=== PATIENT | female | born 1940 | race Caucasian/White ===

== ENCOUNTER 2024-01-02 12:03 | Inpatient (IN) | payer MEDICARE, OTHER, SELFPAY ==
[2024-01-02] VITALS (11 sets, daily range): BP systolic 98–156; BP diastolic 49–90; BMI 21.5
--- NOTE | 2024-01-02 08:45 | ED.GENMED ---
History of Present Illness
General
Chief Complaint: Abdominal Symptoms
Source: patient
Exam Limitations: none
Time Seen by Provider: 01/02/24 08:25
History of Present Illness
History of Present Illness:
83-year-old female otherwise quite healthy presents emergency room with a week and a half worth of fatigue and progressive weakness. Starting 2 to 3 days ago she had loose stools and yesterday she had dark-colored stools. She is coughing
occasionally has increased work of breathing. This was preceded by 5 days left sided pain. She was taking Aleve twice a day for several weeks secondary to her back and left sided pain. No prior abdominal surgical history. No urinary symptoms.
She lives by herself and still works part-time. No other complaints at this time
Phy Exam
Physical Exam
Physical Exam:
General: Well-appearing female no acute respiratory distress
HEENT: Normocephalic atraumatic
Heart: Regular rate and rhythm no murmurs
Lungs: Clear no wheeze
Abdomen slightly distended but soft mildly tender to the left mid abdomen no guarding or rebound normal bowel sounds no costovertebral angle tenderness
Extremities: No cyanosis or edema
Course
Orders/Labs/Results
Orders:
Orders
01/02/24 08:41
CT Abd/pel Without Iv Or Oral Urgent
Reason For Exam: left sided abdominal pain
STOOL [C difficile Antigen & Toxins] Urgent
JANETH Source: Feces/Stool
Specimen Description:
Stool Culture Urgent
JANETH Source: Feces/Stool
Specimen Description:
Stool for Occult Blood Routine
CR Chest - 2 Views Urgent
Comment:
Reason For Exam: cough
01/02/24 08:46
0.9% Sodium Chloride 1000 ml [Nss] 1,000 ml IV BOLUS
01/02/24 08:51
Complete Blood Count/With Diff Urgent
Comprehensive Metabolic Panel Urgent
01/02/24 09:08
Urinalysis Reflex To Culture Urgent
Date Specimen was Collected: 01/02/24
Time Specimen was Collected: 09:07
Urine Microscopic Reflex Cult Urgent
Urine Culture Urgent
JANETH Source: U
Specimen Description:
Date Specimen was Collected: 01/02/24
Time Specimen was Collected: 09:07
01/02/24 09:17
Pantoprazole [Protonix IV] 80 mg IV NOW STA
01/02/24 09:30
Pantoprazole 80 mg/100 ml Nss [Protonix] 80 mg in 100 ml IV Q10H
01/02/24 10:16
Lactic Acid Q4H
Comment: CANCEL 2nd LACTIC ACID IF 1st LACTIC ACID IS LESS THAN 2
Blood Culture Urgent
JANETH Source: Blood/Venous
Specimen Description:
01/02/24 10:36
Blood Culture Urgent
JANETH Source: Blood/Venous
Specimen Description:
CefTRIAXone [Rocephin] 1,000 mg IV NOW STA
01/02/24 13:30
Lactic Acid Q4H
Comment: CANCEL 2nd LACTIC ACID IF 1st LACTIC ACID IS LESS THAN 2
Abnormal Lab Results
01/02/24 01/02/24
08:51 09:08
WBC 28.3 H 10^3/uL
(4.8-10.8)
RBC 3.44 L 10^6/uL
(4.20-5.40)
Hgb 10.5 L g/dL
(12.0-16.0)
Hct 30.2 L %
(37.0-47.0)
RDW 14.8 H %
(11.5-14.5)
Abs Immat Gran (auto) 1.0 H 10^3/uL
(0-0.05)
Absolute Neuts (auto) 24.8 H 10^3/uL
(1.4-6.5)
Absolute Lymphs (auto) 1.1 L 10^3/uL
(1.2-3.4)
Absolute Monos (auto) 1.2 H 10^3/uL
(0.1-0.6)
Immature Gran % 3.4 H %
(0-0.5)
Neutrophils % 87.6 H %
(42.2-75.2)
Lymphocytes % 4.0 L %
(20.5-51.1)
Chloride 108 H mmol/L
(98-107)
Carbon Dioxide 19 L mmol/L
(22-30)
BUN 106 H* mg/dl
(7-17)
Creatinine 1.7 H mg/dL
(0.6-1.0)
Glucose 140 H mg/dl
(70-99)
Alkaline Phosphatase 386 H U/L
(38-126)
Total Protein 5.7 L g/dl
(6.3-8.2)
Albumin 2.7 L g/dl
(3.5-5.0)
Ur Occult Blood Reflex 3+ A
(Negative)
Urine Nitrite (Reflex) Positive A
(Negative)
Leukocyte Esterase Rfl 2+ A
(Negative)
Urine RBC 26-30 A /HPF
(0-2)
Urine WBC (Reflex) 50-60 A /HPF
(0-5)
Urine Bacteria (Reflex) Many A
(Negative)
01/02/24 08:51
01/02/24 08:51
Vital Signs
Initial and Last Documented VS:
Initial Vital Signs
Temp Pulse Resp BP Pulse Ox
98.2 F 67 16 156/90 95
01/02/24 07:57 01/02/24 07:57 01/02/24 07:57 01/02/24 07:57 01/02/24 07:57
Last Documented Vital Signs
Temp Pulse Resp BP Pulse Ox
98.2 F 123 23 146/70 95
01/02/24 07:57 01/02/24 09:13 01/02/24 09:13 01/02/24 09:15 01/02/24 07:57
MDM/Problems Addressed
Differential Diagnosis Includes:
Fatigue diarrhea dark stool. Question viral illness, electrolyte abnormality, anemia. She is coughing occasionally with increased work of breathing. Will check chest x-ray for pneumonia. Patient did take 2 COVID test at home which were negative.
If patient provide stool sample will check stool culture and C. difficile
Patient is slightly distended and tender to the abdomen. Will order CT of the abdomen
*Critical Care Note
Total Time (30-74mins, 75-104mins- exclusive of procedures): Not Applicable
Update Note
Update Note:
Patient is tachycardic. Hemoglobin 10.5. White count 28,000. Lactic acid and blood cultures ordered. Rectal exam was performed with female personal lines sales executive in the room. The stool was black in color and heme positive. Patient was using Aleve
frequently recently. Protonix ordered
Chest x-ray shows emphysematous changes but no acute finding otherwise. CT the abdomen shows dilation of the bilateral renal collecting systems. Consider urinary tract infection as a source. CT abdomen also shows fluid in the stomach potentially
blood products. Rocephin ordered for UTI. Lactic acid and blood cultures sent. Will admit to hospital
ED Attending Note
-
Portions of this chart may have been created with voice recognition software.� Occasional wrong word or��sound alike� substitutions may have occurred due to the inherent limitations of voice recognition software.
Discharge Plan
Departure
Patient Disposition: Admit
Date of Disposition: 01/02/24
Time of Disposition: 10:40
Admit to: Telemetry
Presentation/result/management discussed w/ accepting MD/DO: Hospitalist
Discharge Problem:
Acute GI bleeding, Acute UTI
Prescriptions:
No Action
naproxen sodium [Aleve] 220 mg Tablet
220 mg PO BIDPRN PRN (Reason: back pains)
ibandronate [Boniva] 150 mg Tablet
150 mg PO QMONTH
Referrals:
NONE,* [Family Provider] -
Interventions
Interventions:
*Risk Screen - Suicide Last Done: 01/02/24 07:57
*Neglect/Abuse Screening Last Done: 01/02/24 07:57
Discharge Date and Time
Print Language: KYRGYZ
[2024-01-02 09:03] LABS: Hematocrit 30.2 % (37.0-47.0); Hemoglobin 10.5 g/dL (12.0-16.0); Mean Corp Hgb Conc. 34.8 g/dL (33.0-37.0); Mean Corpuscular Hgb 30.5 pg (27.0-31.0); Mean Corpuscular Volume 87.8 fL (81.0-99.0); Mean Platelet Volume 10.1 fL (7.4-10.4); Platelet Count 192 10^3/uL (130-400); Red Blood Cell Count 3.44 10^6/uL (4.20-5.40); Red Cell Dist. Width 14.8 % (11.5-14.5); White Blood Cell Count 28.3 10^3/uL (4.8-10.8)
[2024-01-02] MEDS: NSS 1000 IV (09:05)
[2024-01-02 09:25] LABS: ALT (SGPT) 24 U/L (0-35); AST (SGOT) 26 U/L (14-36); Albumin 2.7 g/dl (3.5-5.0); Alkaline Phosphatase 386 U/L (38-126); Blood Urea Nitrogen 106 mg/dl (7-17); Calcium 9.1 mg/dl (8.4-10.2); Carbon Dioxide 19 mmol/L (22-30); Chloride 108 mmol/L (98-107); Estimated Creatinine Clearance 19 ml/min; Glucose 140 mg/dl (70-99); Potassium 4.6 mmol/L (3.5-5.1); Sodium 140 mmol/L (135-145); Total Bilirubin 1.2 mg/dl (0.2-1.3); Total Protein 5.7 g/dl (6.3-8.2); eGFR 29.76
[2024-01-02 09:25] LABS: Urine Albumin Trace (Neg - Trace); Urine Bilirubin Negative (Negative); Urine Character Slightly Cloudy (Clear); Urine Color Yellow; Urine Glucose Negative (Negative); Urine Ketone Negative (Negative); Urine Leukocyte 2+ (Negative); Urine Nitrite Positive (Negative); Urine Occult Blood 3+ (Negative); Urine Urobilinogen Negative (Neg - 1+)
[2024-01-02 09:44] LABS: Urine Squamous Cell 16-20 /LPF (Few)
[2024-01-02 09:45] LABS: Urine Bacteria Many (Negative); Urine Red Blood Cell 26-30 /HPF (0-2); Urine White Cell 50-60 /HPF (0-5)
[2024-01-02 09:47] LABS: % Basophils 0.5 % (0-2); % Eosinophils 0.1 % (0-6); % Immature Granulocytes 3.4 % (0-0.5); % Monocytes 4.4 % (1.7-9.3); % Neutrophils 87.6 % (42.2-75.2); Absolute Basophils 0.2 10^3/uL (0-0.2); Absolute Lymphocytes 1.1 10^3/uL (1.2-3.4); Absolute Monocytes 1.2 10^3/uL (0.1-0.6); Absolute Neutrophils 24.8 10^3/uL (1.4-6.5); Nucleated Red Blood Cells % 0 %
[2024-01-02] MEDS: PROTONIX 100 IV ×2 (10:26→19:25)
[2024-01-02] MEDS: PROTONIX IV 80 MG IV (10:26)
[2024-01-02 10:41] LABS: Lactic Acid 1.6 mmol/L (0.7-2.0)
--- NOTE | 2024-01-02 11:39 | HPS.HSE ---
Family Physician
-
Family Physician: * NONE
Chief Complaint
-
Fatigue, shortness of breath, black stools
History of Present Illness
83-year-old female here complaining of melena that started 2 days ago, fatigue and shortness of breath that started 2 weeks ago.
Has been taking Aleve twice daily for 7 weeks due to left-sided flank pain. She states she hurt her back 7 weeks ago trying to lift her bed to put casters underneath.
Denies history of GI bleed. Denies fevers or chills. Denies dysuria or frequency although at nighttime she does get up 3 times to urinate lately due to increased oral fluid intake prior to bed.
Has a mildly productive cough lately. Lives alone. Works part-time. Does not have a family physician.
Medical History
Past Medical History
Past Medical History: Reports Other
Additional Past Medical History:
Osteoporosis
Past Surgical History: Reports None
Social History
Tobacco: Former Smoker
Alcohol: Occasional
Drug: None
Personal: Single
Living: Alone
Employment: Employed
Family History
Family History: Not pertinent
Allergies / Home Medications
Allergies reflects when Allergies were last updated in [employer].
Home Medications with original date entered in [employer]
Allergy/Medication List:
Allergies
Allergy/AdvReac Type Severity Reaction Status Date / Time
No Known Allergies Allergy Verified 01/02/24 08:01
Home Medications
ibandronate 150 mg tablet 150 mg PO QMONTH 01/02/24
naproxen sodium 220 mg tablet (Aleve) 220 mg PO BIDPRN PRN back pains 01/02/24
Review of Systems
-
History Source: Patient
A 12 point ROS was completed and negative except as noted: Yes
Physical Exam
Vital Signs
Vital Signs
Temp Pulse Resp BP Pulse Ox
98.2 F 118 25 146/70 97
01/02/24 07:57 01/02/24 10:34 01/02/24 10:34 01/02/24 09:15 01/02/24 10:34
Physical Exam
General: Well Developed, Well Nourished, No Apparent Distress and Comfortable
HEENT: NormoCephalic, Anicteric and Moist mucous membranes
Respiratory: Clear
Cardiac: S1/S2 and Regular Rhythm
GI: Soft, Non Tender and Distended
Genito-urinary: Deferred by me
Musculoskeletal: No Clubbing, No Cyanosis and No Edema
Skin: Warm and Dry
Neuro: AO x 3
Hematologic/Lymphatic: No Lymphadenopathy
Psych: Calm
Laboratory Results
-
01/02/24 08:51
01/02/24 08:51
Laboratory Results
Lactic Acid 1.6 mmol/L (0.7-2.0) 01/02/24 10:16
Total Bilirubin 1.2 mg/dl (0.2-1.3) 01/02/24 08:51
AST 26 U/L (14-36) 01/02/24 08:51
ALT 24 U/L (0-35) 01/02/24 08:51
Alkaline Phosphatase 386 U/L (38-126) H 01/02/24 08:51
Impression/Plan
-
Sepsis -differential diagnosis includes urinary source versus other. Does not have classic UTI symptoms. Urinalysis does show pyuria. Urine culture pending. Continue empiric ceftriaxone. CT scan does show moderate right and mild left
hydronephrosis, multiple nonobstructing right intrarenal calculi. No CT evidence for ureteral stones. Hemodynamically stable.
Subacute GI bleed -presentation with melena for 48 hours. Monitor hemoglobin. Consent for transfusion obtained in the emergency room. Consult GI. Continue Protonix drip. Denies history of GI bleed. Suspect NSAID induced GI bleed, peptic ulcer
disease. CT scan notes possible gastric intraluminal hemorrhage. Has never had EGD or colonoscopy.
CT also suggestive of possible ileus less likely obstruction given moderate fluid distention of small bowel loops in the pelvis. She has no complaints of nausea or vomiting. She does have abdominal distention on exam but not significantly tender.
Acute blood loss anemia -hemoglobin 10.5. MCV normal. Check anemia labs. Etiology of blood loss anemia likely due to GI bleed as above.
Normal anion gap metabolic acidosis -RTA versus GI bicarbonate losses. Monitor for now.
Renal insufficiency -acute versus chronic. High BUN to creatinine ratio suggestive of GI bleed. NSAID induced renal insufficiency also playing a role. Denies history of kidney disease but does not have a family physician. Baseline creatinine
unknown. Stop NSAIDs and recheck labs in the morning. IV fluid support.
Abdominal aortic aneurysm -incidental finding on CT, 3.1 cm. Findings reported to patient and family, recommend outpatient follow-up with PCP.
Emphysema -suspect related to years of smoking. Findings noted on CT and chest x-ray. Discussed with patient. She quit smoking 3 to 4 years ago.
Rectal prolapse -severe and noted on CT. Patient has no symptoms.
Colonic diverticulosis -noted on CT.
Osteoporosis -on Boniva. She does have an L4 vertebral body fracture on CT. Relatively asymptomatic. Perhaps her back pain 7 weeks ago could be explained by this.
DNR -confirmed with patient.
--- NOTE | 2024-01-02 11:42 | CON.GI ---
Addendum entered and electronically signed by Heike Love MD 01/02/24 13:55:
I saw and examined the patient.
The FEED MANAGER or PA's note was reviewed and I agree with the note.
Comment: 83-year-old female with history of osteoporosis, previous smoker quit 3 years ago presenting with complaints of black stool in the last couple of days. Also reports intermittent abdominal cramping without any nausea or vomiting. No
previous GI history and no symptoms prior to this. Never had upper endoscopy or colonoscopy. No history of GI bleeding. Has been taking Aleve 2 tablets daily for the past 7 weeks for back pain. 6 or 7 pound weight loss. Recently she does report
abdominal cramping, bloating, some shortness of breath. Labs show leukocytosis with white count of 28.3, left shift noted, hemoglobin of 10.5, BUN of 106 with creatinine of 1.7. Albumin low at 2.7.
CT of the abdomen pelvis without contrast showing acute vertebral body endplate fracture at L4, severe descending and sigmoid diverticulosis, moderate fluid distention of the small bowel loops. Moderate amount of poorly circumscribed high
attenuation material in the stomach. Also noted is significant emphysematous changes in both lungs.
On exam, abdomen is mildly distended, no guarding or rigidity but mild tenderness noted.
Rectal exam showing black stool.
Slightly tachycardic but otherwise hemodynamically stable.
-Upper GI bleeding likely related to NSAID use
Agree with Protonix drip.
Monitor H&H and transfuse as needed.
Given gastric small bowel loop distention, distention, will need to give IV erythromycin prior to endoscopy to prevent aspiration.
Given significant leukocytosis, await blood cultures and infection workup.
Once white count comes down, will plan for upper endoscopy. Possibly tomorrow.
If hemodynamically unstable , will do EGD sooner.
r
Original Note:
Consultation
-
Date/Time Consultation Requested: 01/02/24 1130
Date/Time Consultation Performed: 01/02/24 1145
Requesting Provider: Arvind Ordoñez DO
Performing Provider: AMANDEEP Haney, Heike Love MD
Reason for Consultation: GI bleed
Medical History
Chief Complaint / HPI
Chief Complaint: weakness
History of Present Illness:
Pt is an 83yo with hx osteoporosis on Boniva, PE years ago with control use, likely COPD/emphysema with hx tobacco abuse with onset of weakness and fatigue. In ER noted with hbg 10.5, with rise in BUN to 106 with creat 1.7 and WBC 28, 300
with reports of dark stools and weakness for several week. 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 She began about 7 weeks ago with increased acute on chronic back pain after moving a bed. She
increased Aleve use to BID. She dose have some chronic GERD with Pepcid occasional use but also notes in that time period some increased dizziness, shortness of breath, bloating and decreased appetite.
Ct on admission also noted multiple finding including renal collecting system distention, high attenuation in stomach- intraluminal hemorrhage vs other, fluid distention of SB loops, rectal prolapse, AAA 3.1 cm, L4 vert collapse, vert body
fracture, and DDD. She otherwise admits to occasional GERD and nausea but denies dysphagia, odynophagia, abdominal pain, or constipation. No hx EGD or colonoscopy in past.
Past Medical History
Past Medical History: GERD and Other (osteoporosis, tobacco abuse-- likely COPD/emphysema per imaging, chronic back pain, PE with control pill use years ago)
Social History
Tobacco: Former Smoker
Alcohol: None
Drug: None
Personal:
Living: Alone
Employment: Employed
Family History
Family History: Other (no family hx GI issues or colon CA)
Allergies / Home Medications
Allergy/AdvReac Type Severity Reaction Status Date / Time
No Known Allergies Allergy Verified 01/02/24 08:01
�Medication �Instructions �Recorded
ibandronate 150 mg tablet 150 mg PO QMONTH 01/02/24
naproxen sodium 220 mg tablet 220 mg PO BIDPRN PRN back pains 01/02/24
(Aleve)
Review of Systems
-
History Source: Patient and Family
Constitutional: Reports Weight Loss and Fatigue
EENT: Reports No Symptoms
Respiratory: Reports Trouble Breathing
Cardiac: Reports No Symptoms
Abdomen/GI: Reports Nausea and Other (dark stools and bloating)
: Reports No Symptoms
Musculoskeletal: Reports Other (acute on chronic back pain)
Skin: Reports No Symptoms
Neurological: Reports Weakness
Endocrine: Reports No Symptoms
Hematologic/Lymphatic: Reports Bleeding
Vital Signs
Temp Pulse Resp BP Pulse Ox
98.2 F 118 25 146/70 97
01/02/24 07:57 01/02/24 10:34 01/02/24 10:34 01/02/24 09:15 01/02/24 10:34
Physical Exam
Exam
General: Well Developed, Well Nourished and Other (some mild shortness of breath at rest )
HEENT: Normocephalic and Anicteric
Respiratory: Other (decreased )
Cardiac: Other (tachy)
GI: Soft and Distended (tympanic )
Musculoskeletal: No Clubbing and No Cyanosis
Skin: Warm and Dry
Neuro: Awake, Alert and AO x 3
Psych: Calm
Results
WBC 28.3 10^3/uL (4.8-10.8) H 01/02/24 08:51
Hgb 10.5 g/dL (12.0-16.0) L 01/02/24 08:51
Hct 30.2 % (37.0-47.0) L 01/02/24 08:51
MCV 87.8 fL (81.0-99.0) 01/02/24 08:51
Plt Count 192 10^3/uL (130-400) 01/02/24 08:51
Absolute Neuts (auto) 24.8 10^3/uL (1.4-6.5) H 01/02/24 08:51
Sodium 140 mmol/L (135-145) 01/02/24 08:51
Potassium 4.6 mmol/L (3.5-5.1) 01/02/24 08:51
Chloride 108 mmol/L (98-107) H 01/02/24 08:51
Carbon Dioxide 19 mmol/L (22-30) L 01/02/24 08:51
BUN 106 mg/dl (7-17) H* 01/02/24 08:51
Creatinine 1.7 mg/dL (0.6-1.0) H 01/02/24 08:51
Calcium 9.1 mg/dl (8.4-10.2) 01/02/24 08:51
Total Bilirubin 1.2 mg/dl (0.2-1.3) 01/02/24 08:51
AST 26 U/L (14-36) 01/02/24 08:51
ALT 24 U/L (0-35) 01/02/24 08:51
Alkaline Phosphatase 386 U/L (38-126) H 01/02/24 08:51
Diagnostic Image Results:
01/02/24 CT Abdomen and Pelvis without IV Contrast
1. Moderate distention of the right intrarenal collecting system and mild distention of the left intrarenal collecting system. Multiple nonobstructing right intrarenal calculi. No CT evidence for ureteral calculus. Diagnostic possibilities are (1)
ureteral obstructions or (2) bilateral ascending urinary tract infection.
2. Moderate amount of poorly circumscribed high attenuation material in the stomach which could be secondary to intraluminal hemorrhage from a gastric bleed.
3. Small hiatal hernia.
4. Moderate fluid distention of small bowel loops in the pelvis.
5. Severe descending and sigmoid colon diverticulosis.
6. Severe rectal prolapse.
7. Severe calcific atherosclerotic plaque in the abdominal aorta and iliac arteries.
8. Fusiform abdominal aortic aneurysm (3.1 cm diameter).
9. Acute vertebral body endplate fractures of L4 without vertebral body collapse.
10. VERY SEVERE BILATERAL EMPHYSEMA.
11. Severe left convex curvature of the midlumbar spine with adjacent severe discogenic degenerative disease.
12. Severe left-sided facet joint arthrosis at L4/L5 and L5/S1.
Prior GI Procedures:
EGD: none
Colonoscopy: none
Assessment / Plan
-
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 In ER noted with hbg 10.5, with rise in BUN to 106 with creat 1.7 and WBC 28, 300 with reports of dark stools and
weakness for several week. 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 She began about 7 weeks ago with increased acute on chronic back pain after moving a bed. She increased Aleve use to BID. She
dose have some chronic GERD with Pepcid occasional use but also notes in that time period some increased dizziness, shortness of breath, bloating and decreased appetite.
-dark stools
-acute on chronic back pain with increased NSAID use
-abdominal distention with fluid in SB on imaging
-anemia
-elevated BUN with elevated creat 1.7 with no prior baseline
-distention of right intrarenal collecting system
-leukocytosis
-tachycardia
-acute L4 fx on imaging
-rectal prolapse on imaging
-hypoalbuminemia
other med problems:
-osteoporosis on Boniva
-tobacco abuse with likely COPD/emphysema on imaging
-AAA 3.1 cm on imaging
-distant hx PE while on control
PLAN:Etiology of symptoms with concern for UGI with recent increased NSAID use, BUN elevation vs other
t/c EGD will review timing with Dr. Love with leukocytosis with mild shortness of breath on exam
if EGD neg will need to consider colonoscopy
trend hbg
PPI gtt
if proceeding today consider E mycin prior with noted material in stomach
CT as noted with some SB loop distention ? ileus with noted spinal fracture vs other
await blood cx
will review with Dr. Ordoñez for medical optimization prior to EGD with likely underlying resp issues, leukocytosis, etc
updated family at bedside
-
-
Thank you for consultation and allowing me to participate in the patient's care. Please call the image consultant GI physician during the after hours with any questions or concerns.
[2024-01-02] MEDS: ROCEPHIN 1000 MG IV (13:40)
--- NOTE | 2024-01-02 14:32 | EDRN ---
pt. having continuous episodes of black tarry stool also complaining of 8/[address] shields who stated there was tylenol ordered. will given and re-eval pt.
[2024-01-02] MEDS: TYLENOL 650 MG PO ×2 (14:51→23:17)
--- NOTE | 2024-01-03 02:14 | PTCARENOTE ---
Patient did have a small bowel movement overnight which was heme + and was dark red in appearance. Pt. also c/o lower abd pain; tylenol administered as ordered, but was not effective. Provider notified. Awaiting new orders this at time.
[2024-01-03] MEDS: PROTONIX 100 IV (06:03)
[2024-01-03 07:19] VITALS: BP 105/53
[2024-01-03 07:34] LABS: % Basophils 0.3 % (0-2); % Eosinophils 0.3 % (0-6); % Immature Granulocytes 4.6 % (0-0.5); % Lymphocytes 7.3 % (20.5-51.1); % Monocytes 5.7 % (1.7-9.3); % Neutrophils 81.8 % (42.2-75.2); Absolute Basophils 0.1 10^3/uL (0-0.2); Absolute Eosinophils 0.1 10^3/uL (0-0.7); Absolute Immature Granulocytes 1.1 10^3/uL (0-0.05); Absolute Lymphocytes 1.8 10^3/uL (1.2-3.4); Absolute Monocytes 1.4 10^3/uL (0.1-0.6); Absolute Neutrophils 20.4 10^3/uL (1.4-6.5); Hematocrit 20.2 % (37.0-47.0); Hemoglobin 7.1 g/dL (12.0-16.0); Mean Corp Hgb Conc. 35.1 g/dL (33.0-37.0); Mean Corpuscular Hgb 30.6 pg (27.0-31.0); Mean Corpuscular Volume 87.1 fL (81.0-99.0); Mean Platelet Volume 10.5 fL (7.4-10.4); Nucleated Red Blood Cells % 0 %; Platelet Count 222 10^3/uL (130-400); Red Blood Cell Count 2.32 10^6/uL (4.20-5.40); Red Cell Dist. Width 14.9 % (11.5-14.5); White Blood Cell Count 24.9 10^3/uL (4.8-10.8)
[2024-01-03 07:37] LABS: Blood Urea Nitrogen 93 mg/dl (7-17); Calcium 8.2 mg/dl (8.4-10.2); Carbon Dioxide 20 mmol/L (22-30); Chloride 115 mmol/L (98-107); Estimated Creatinine Clearance 23 ml/min; Glucose 116 mg/dl (70-99); Potassium 4.2 mmol/L (3.5-5.1); Sodium 146 mmol/L (135-145); eGFR 37.56
--- NOTE | 2024-01-03 09:21 | W.PN.HOSP.TC ---
Today's Communication/Plan
-
Transfuse
Continue antibiotics
Await cultures
Assessment / Plan
Assessment / Plan
Gen-AAOx3, NAD
HEENT-NC, AT, anicteric, clear oral mm
Neck-supple
CV-reg, no M, +S1/S2
Lungs-clear B/L
Abd-soft, NT, ND
Ext-no edema
Musculoskeletal-no cyanosis, clubbing
Skin-warm and dry
Neuro-grossly non-focal
Psych-calm, cooperative
Sepsis -differential diagnosis includes urinary source versus other. Does not have classic UTI symptoms. Urinalysis does show pyuria. Urine culture pending. Continue empiric ceftriaxone. CT scan does show moderate right and mild left
hydronephrosis, multiple nonobstructing right intrarenal calculi. No CT evidence for ureteral stones. Hemodynamically stable.
Blood cultures are positive for gram-negative bacilli. WBC count coming down, afebrile. Lactic acidosis noted.
Subacute GI bleed -presentation with melena for 48 hours. Monitor hemoglobin. Consent for transfusion obtained in the emergency room. Consult GI. Continue Protonix drip. Denies history of GI bleed. Suspect NSAID induced GI bleed, peptic ulcer
disease. CT scan notes possible gastric intraluminal hemorrhage. Has never had EGD or colonoscopy.
CT also suggestive of possible ileus less likely obstruction given moderate fluid distention of small bowel loops in the pelvis. She has no complaints of nausea or vomiting. She does have abdominal distention on exam but not significantly tender.
Acute blood loss anemia -hemoglobin 10.5 on admission, 7.1 this morning. MCV normal. Check anemia labs. Etiology of blood loss anemia likely due to GI bleed as above. Transfuse 1 unit of blood today.
Normal anion gap metabolic acidosis -RTA versus GI bicarbonate losses. Monitor for now. Bicarb 20. Hypernatremia noted.
BEHZAD -present on admission. Creatinine improving. High BUN to creatinine ratio suggestive of GI bleed, volume depletion. NSAID induced renal insufficiency also playing a role. Denies history of kidney disease but does not have a family physician.
Baseline creatinine unknown. Stop NSAIDs and recheck labs in the morning. IV fluid support.
Abdominal aortic aneurysm -incidental finding on CT, 3.1 cm. Findings reported to patient and family, recommend outpatient follow-up with PCP.
Emphysema -suspect related to years of smoking. Findings noted on CT and chest x-ray. Discussed with patient. She quit smoking 3 to 4 years ago.
Rectal prolapse -severe and noted on CT. Patient has no symptoms.
Colonic diverticulosis -noted on CT.
Osteoporosis -on Boniva. She does have an L4 vertebral body fracture on CT. Relatively asymptomatic. Perhaps her back pain 7 weeks ago could be explained by this.
DNR -confirmed with patient.
Anticipated Discharge: > 48 hours
Subjective/Interval History
-
Date of Service: January 03, 2024
Patient seen and examined. Complaining of dry mouth.
Objective Data
-
Labs:
Laboratory Results
01/03/24
06:59
WBC 24.9 H
Hgb 7.1 L D
Hct 20.2 L*
Plt Count 222
Sodium 146 H
Potassium 4.2
Chloride 115 H
Carbon Dioxide 20 L
BUN 93 H
Creatinine 1.4 H
Glucose 116 H
Calcium 8.2 L
Vital Signs:
Vital Signs
Temp Pulse Resp BP Pulse Ox
98.4 F 93 18 105/53 95
01/03/24 07:19 01/03/24 07:19 01/03/24 07:19 01/03/24 07:19 01/03/24 07:19
Review of Systems
-
History Source: Patient
All other systems: Reviewed and negative
--- NOTE | 2024-01-03 09:31 | W.PN.GI.CBS2 ---
Addendum entered and electronically signed by Christine Brock MD 01/03/24 18:59:
I saw and examined the patient.
The PIV[employer] POLISHER's note was reviewed and I agree with the note.
-- Abdominal pain/dark stool/NSAID use/abnormal CT/high BUN suggestive of UGI bleed
-- Urosepsis -urine/blood culture positive for E. coli
plan
Clear liquid today. N.p.o. after midnight
Will tentatively plan EGD tomorrow a.m.
Continue monitor H&H
continue PPI bid
Continue antibiotics as per medical team
if EGD negative Will discuss about colonoscopy inpatient versus outpatient (current bacteremia)
Original Note:
Today's Communication / Plan
-
Etiology of symptoms with concern for UGI with recent increased NSAID use, BUN elevation vs with bloating cannot rule out SB or colon source
now noted with gram neg bacteremia-- etiology of bacteremia unclear-- await urine cx data
cont abx
will need EGD tentative for AM if neg consider colonoscopy
some drop in hbg but now passing small amounts burgundy stool
reviewed wit nursing to call for increased stools
agree with transfusion
trend hbg
PPI gtt to transition to BID
ok for clear diet today
reviewed with Dr. Ordoñez with large vaginal prolapse
reviewed with nursing staff
Assessment / Plan
-
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 In ER noted with hbg 10.5, with rise in BUN to 106 with creat 1.7 and WBC 28, 300 with reports of dark stools and
weakness for several week. 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 She began about 7 weeks ago with increased acute on chronic back pain after moving a bed. She increased Aleve use to BID. She
dose have some chronic GERD with Pepcid occasional use but also notes in that time period some increased dizziness, shortness of breath, bloating and decreased appetite. Pt noted with leukocytosis with bacteremia after admission. Large vaginal
prolapse on admission.
-dark stools
-acute on chronic back pain with increased NSAID use
-abdominal distention with fluid in SB on imaging
-anemia with drop after admission
-bacteremia/leukocytosis - gram neg
-elevated BUN with elevated creat 1.7 with no prior baseline
-distention of right intrarenal collecting system
-acute L4 fx on imaging
-rectal prolapse on imaging but noted with hx large vaginal prolapse on exam -- known hx of prolaspe for years
-hypoalbuminemia
other med problems:
-osteoporosis on Boniva
-tobacco abuse with likely COPD/emphysema on imaging
-AAA 3.1 cm on imaging
-distant hx PE while on control
PLAN:
Etiology of symptoms with concern for UGI with recent increased NSAID use, BUN elevation vs with bloating cannot rule out SB or colon source
now noted with gram neg bacteremia-- etiology of bacteremia unclear-- await urine cx data
cont abx
will need EGD tentative for AM if neg consider colonoscopy
some drop in hbg but now passing small amounts burgundy stool
reviewed wit nursing to call for increased stools
agree with transfusion
trend hbg
PPI gtt to transition to BID
ok for clear diet today
reviewed with Dr. Ordoñez with large vaginal prolapse
reviewed with nursing staff
Subjective
Subjective
Date of Service: January 03, 2024
NPo for possible EGD 01/02 burgundy stool now noted with bacteremia
Objective
Data Reviewed
Laboratory Data:
Laboratory Results
01/03/24 06:59
01/03/24 06:59
Laboratory Results
Total Bilirubin 1.2 mg/dl (0.2-1.3) 01/02/24 08:51
AST 26 U/L (14-36) 01/02/24 08:51
ALT 24 U/L (0-35) 01/02/24 08:51
Alkaline Phosphatase 386 U/L (38-126) H 01/02/24 08:51
Vital Signs and I&O:
Vital Signs
Temp Pulse Resp BP Pulse Ox
98.4 F 93 18 105/53 95
01/03/24 07:19 01/03/24 07:19 01/03/24 07:19 01/03/24 07:19 01/03/24 07:19
Physical Exam
Physical Exam
HEENT: Anicteric and Moist mucous membranes
Cardiology: Normal Sinus Rhythm
Pulmonary: Clear
GI: Soft and Distended (mild but improved from 01/01)
Rectal: Other (no rectal prolapse-- burgundy stool in toilet small amount-- large vaginal prolapse on exam -- chronic but worsening per patient )
Extremities: No Edema
Neuro: Non Focal
[2024-01-03] MEDS: 0.45%NACL 1000 IV (09:42)
[2024-01-03 10:22] LABS: Reticulocyte Count 1.9 % (0.4-2.8)
[2024-01-03 10:48] LABS: Iron 94 ug/dl (37-170)
[2024-01-03 10:58] LABS: Percent Saturation 45 % (20-50); Total Iron Binding Capacity 208 ug/dl (265-497)
[2024-01-03] MEDS: STERILE WATER FOR INJECTION 10 ML IV (11:00)
[2024-01-03] MEDS: ROCEPHIN 1000 MG IV (11:00)
[2024-01-03 11:54] VITALS: BP 86/49
[2024-01-03] MEDS: TYLENOL 650 MG PO (12:00)
[2024-01-03 12:09] VITALS: BP 104/54
[2024-01-03 12:31] LABS: Folate 11.4 ng/ml (2.76-20); Vitamin B12 > 1000 pg/ml (239-931)
[2024-01-03 15:15] VITALS: BP 118/62
--- NOTE | 2024-01-03 16:50 | CM ---
accounts payable manager reviewed patient's chart and met with patient and patient lives alone in a 2 story home patient is independent with adl's and uses a cane with ambulation, patient drives.
PCP: Patient to pick a new PCP
Pharmacy: [facility] in [place]
[2024-01-03] MEDS: PROTONIX IV 40 MG IV (20:20)
[2024-01-03] MEDS: NSS (PRESERVATIVE FREE) 10 ML IV (20:29)
[2024-01-03 23:15] VITALS: BP 112/61
[2024-01-04] VITALS (9 sets, daily range): BP systolic 12–143; BP diastolic 36–71
[2024-01-04] MEDS: NSS (PRESERVATIVE FREE) 10 ML IV (07:40)
[2024-01-04] MEDS: PROTONIX IV 40 MG IV (07:41)
[2024-01-04 08:00] LABS: % Basophils 0.4 % (0-2); % Eosinophils 0.6 % (0-6); % Immature Granulocytes 3.6 % (0-0.5); % Lymphocytes 7.4 % (20.5-51.1); % Monocytes 5.2 % (1.7-9.3); % Neutrophils 82.8 % (42.2-75.2); Absolute Basophils 0.1 10^3/uL (0-0.2); Absolute Eosinophils 0.1 10^3/uL (0-0.7); Absolute Immature Granulocytes 0.8 10^3/uL (0-0.05); Absolute Lymphocytes 1.6 10^3/uL (1.2-3.4); Absolute Monocytes 1.1 10^3/uL (0.1-0.6); Absolute Neutrophils 18.1 10^3/uL (1.4-6.5); Hematocrit 24.7 % (37.0-47.0); Hemoglobin 8.5 g/dL (12.0-16.0); Mean Corp Hgb Conc. 34.4 g/dL (33.0-37.0); Mean Corpuscular Hgb 30.6 pg (27.0-31.0); Mean Corpuscular Volume 88.8 fL (81.0-99.0); Mean Platelet Volume 9.8 fL (7.4-10.4); Nucleated Red Blood Cells % 0 %; Platelet Count 263 10^3/uL (130-400); Red Blood Cell Count 2.78 10^6/uL (4.20-5.40); Red Cell Dist. Width 15.8 % (11.5-14.5); White Blood Cell Count 21.8 10^3/uL (4.8-10.8)
[2024-01-04 08:05] LABS: INR 1.17
[2024-01-04 08:38] LABS: Blood Urea Nitrogen 49 mg/dl (7-17); Carbon Dioxide 24 mmol/L (22-30); Chloride 116 mmol/L (98-107); Estimated Creatinine Clearance 30 ml/min; Glucose 100 mg/dl (70-99); Potassium 3.9 mmol/L (3.5-5.1); Sodium 147 mmol/L (135-145); eGFR 50.17
[2024-01-04] MEDS: STERILE WATER FOR INJECTION 10 ML IV (11:07)
[2024-01-04] MEDS: ROCEPHIN 1000 MG IV (11:07)
--- NOTE | 2024-01-04 12:27 | CON.ID ---
Addendum entered and electronically signed by Chelsie Magaña MD 01/04/24 17:08:
I personally performed a history and physical exam of the patient and discussed management with the resident. I reviewed the resident's note and agree with the documented findings and plan of care HPI/CC with the following additions/corrections:
HPI: fatigue, shortness of breath, black stools
Ms Chambers is an 83 year old female without significant medical history (does not typically see MDs) who presented here 01/01 for a 7 week history of L sided flank pain she has been treating with [employer]. She thought the pain was musculoskeletal
as it began after she tried to lift her bed to put casers on it. No fevers, chills or dysuria. + frequency which she attributes to increased oral intake.
Since arrival here she has been afebrile, bp stable, wbc initailly 28 today 21, hgb 8.5, plt 263, L shift persists, eos are present, cr initially 1.7 (unclear baseline) and now 1.1, last lactic acid was 3.0, t bili 1.2, ast 26, alt 24, alk phos 386,
ua 50-60 wbc/hpf and 16-20 squamous cells, 01/01 CT a/p moderate distenstion of the bilateral collecting systems without obstructing stones, possible gastric bleed, diverticulosis, AAA, emphysema, blood cultures x2 E coli - urine culture 100K E
coli, currently on ceftriaxone, ID is consulted for assistance with management.
histories/ROS as documented by resident
Physical Exam
General: Comfortable
Respiratory: Clear bilaterally, no rales or wheezes
Cardiac: S1/S2 and Regular Rhythm
GI: Soft, Non Tender and Distended
Genito-urinary: suprapubic tenderness
Skin: Warm and Dry
labs reviewed most notably:
Urine Culture Final 01/04/24-833
CC: Greater than 100,000 CFU/ML Escherichia coli
Organism 1 Escherichia coli
1. Escherichia coli
M.I.C. RX
--------- ---
Amoxicillin/Potas. Clavulanate >16/8 R
Ampicillin >16 R
Ampicillin/Sulbactam 16/8 I
Aztreonam >16 R
Cefazolin 16 R
Cefazolin interpretations for E. coli, K. pneumo and
P. mirabilis for uncomplicated uti are as follows:
<=16 Susceptible
> 16 Resistant
Cefepime <=2 S
Ceftazidime <=1 S
Ceftriaxone <=1 S
Ertapenem <=0.5 S
Ciprofloxacin >2 R
Gentamicin <=2 S
Meropenem <=1 S
Nitrofurantoin-Urine Only <=32 S
Piperacillin/Tazobactam <=8 S
Tetracycline <=4 S
Tobramycin <=2 S
Trimethoprim/Sulfamethoxazole >2/38 R
A&P:
Complicated UTI due to E coli
E coli bacteremia
BEHZAD - improving
- no need to repeat blood cultures for gram negative bacteremia
- crcl currently 30
- switch to: cefdinir to complete 7 day of treatment
- would like patient to follow up with a PCP and to consider pulmonary follow up
AW
Original Note:
Consultation
-
Requesting Provider:
Performing Provider: /
Chief Complaint / Past History
Chief Complaint
Melena and Fatigue
History of Present Illness
This is a 83 year old female patient with PMH of osteoporosis on Boniva who presented to the ED with fatigue after noticing dark stool a few days ago. 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
some trauma to her back. Due to the pain, she increased her frequency of NSAID to twice daily (she previously uses NSAIDs for her chronic back pain). She denied any kind of abdominal pain, nausea, vomiting, fevers or urinary discomfort prior to her
admission. She initially was going to make an appointment with a new PCP since she has not seen a family doctor in many years but her daughter brought her directly to the ER once she was made aware of patien'ts symptoms.
In the ER, WBC count was increased to 28.3, Hb 10.5, BUN 93, and Cr 1.4. UA showed findings suggestive of UTI.
Past History
Past Medical History: COPD and Other (osteoporosis)
Past Surgical History: None
Allergy History:
No Known Allergies Allergy (Verified 01/02/24 17:08)
Social History
Tobacco: Former Smoker (quit 2 years ago; smoked 0.5-1 pack/day )
Alcohol: Occasional
Drug: None
Personal: Single
Living: Alone
Family History
Family History: Not Pertinent
Review of Systems
Review of Systems
Cardiovascular: Negative Chest Pain
Respiratory: Cough
Gasteroenterology: Negative Nausea or Vomiting
Genital / Urological: Negative Dysuria
Endocrine: Fatigue
Neurological: Negative Headache
Vital Signs
Temp Pulse Resp BP Pulse Ox
98.5 F 89 15 111/36 91
01/04/24 07:00 01/04/24 12:15 01/04/24 12:15 01/04/24 12:15 01/04/24 12:15
Physical Exam
Physical Exam
Constitutional: No Acute Distress
Head: Normocephalic
Eyes: Pupils Equal and Pupils Round
Cardiovascular: Regular Rate and S1/S2; Negative Murmur
Pulmonary: Clear
Gastrointestinal: Soft, Non Tender and Non Distended
Extremities: Negative Edema
Skin: Warm and Dry
Neurological: Awake, Alert and Oriented
Lab / Diagnostic Study Results
01/04/24 07:41
01/04/24 07:41
Abs Immat Gran (auto) 0.8 10^3/uL (0-0.05) H 01/04/24 07:41
Absolute Neuts (auto) 18.1 10^3/uL (1.4-6.5) H 01/04/24 07:41
Absolute Lymphs (auto) 1.6 10^3/uL (1.2-3.4) 01/04/24 07:41
Absolute Monos (auto) 1.1 10^3/uL (0.1-0.6) H 01/04/24 07:41
Absolute Basos (auto) 0.1 10^3/uL (0-0.2) 01/04/24 07:41
Immature Gran % 3.6 % (0-0.5) H 01/04/24 07:41
Neutrophils % 82.8 % (42.2-75.2) H 01/04/24 07:41
Lymphocytes % 7.4 % (20.5-51.1) L 01/04/24 07:41
Monocytes % 5.2 % (1.7-9.3) 01/04/24 07:41
Eosinophils % 0.6 % (0-6) 01/04/24 07:41
Basophils % 0.4 % (0-2) 01/04/24 07:41
PT 15.0 Sec (11.4-14.6) H 01/04/24 07:41
INR 1.17 01/04/24 07:41
Lactic Acid 3.0 mmol/L (0.7-2.0) H 01/02/24 13:38
Ur Squamous Epith Cells 16-20 /LPF (Few) 01/02/24 09:08
Microbiology Results
Micro:
01/02/24 13:38 Salmonella/Shigella Culture - Final
Feces/Stool No Salmonella, Shigella, Aeromonas or Plesiomonas species
isolated.
Campylobacter Culture - Final
No Campylobacter species isolated.
Shiga Toxin Test - Pending
01/02/24 12:38 Blood Culture - Preliminary
Blood/Venous Escherichia coli
Gram Stain - Final
01/02/24 10:16 Blood Culture - Preliminary
Blood/Venous Escherichia coli
Gram Stain - Preliminary
01/02/24 09:08 Urine Culture - Final
Urine Escherichia coli
01/02/24 13:38 C. difficile GDH Antigen & Toxins - Final
Feces/Stool Negative for toxigenic C.difficile
Assessment / Plan
Impression:This is a 83 year old female patient with PMH of osteoporosis on Boniva who presented to the ED with fatigue after noticing dark stool a few days ago. In ED, UA showed findings of UTI.
Assessment:
Urosepsis with urine cx + blood cx with E. Coli
Upper GI bleed
Acute Blood Loss Anemia
BEHZAD- improving
Osteoporosis
Plan:
#Urosepsis with blood cx of E. Coli
-CT abd on 01/01: Moderate distention of the right intrarenal collecting system and mild distention of the left intrarenal collecting system. Multiple nonobstructing right intrarenal calculi. No CT evidence for ureteral calculus
-WBC 21.8 improving, Hb 8.5, Cr 1.1 improving today
- Initially started on ceftriaxone (day #3
-Will transition to cefdinir on discharge to finish a total of 7 day course
--- NOTE | 2024-01-04 12:58 | W.PN.HOSP.TC ---
Addendum entered and electronically signed by Arvind Ordoñez DO 01/04/24 16:20:
Known history of vaginal prolapse. This is the more likely diagnosis rather than rectal prolapse. Needs outpatient follow-up.
Left voicemail for patient's son to call me back for an update.
Original Note:
Today's Communication/Plan
-
Resume diet
ID consult
IV fluids
Labs in the morning
Assessment / Plan
Assessment / Plan
Gen-AAOx3, NAD
HEENT-NC, AT, anicteric, clear oral mm
Neck-supple
CV-reg, no M, +S1/S2
Lungs-clear B/L
Abd-soft, NT, ND
Ext-no edema
Musculoskeletal-no cyanosis, clubbing
Skin-warm and dry
Neuro-grossly non-focal
Psych-calm, cooperative
E. coli sepsis due to UTI - continue empiric ceftriaxone. Consult ID. CT scan does show moderate right and mild left hydronephrosis, multiple nonobstructing right intrarenal calculi. No CT evidence for ureteral stones. Hemodynamically stable.
Subacute GI bleed -presentation with melena for 48 hours. EGD completed 01/03, LA grade D esophagitis without bleeding, medium size hiatal hernia, nonbleeding gastric ulcers with no stigmata of bleed. Gastritis. Normal duodenum. Continue
Protonix twice daily for 8 weeks then daily. Sucralfate 1 g 4 times daily for 2 weeks as per GI. Needs repeat EGD in 3 months to check for healing. Avoid all NSAIDs.
CT also suggestive of possible ileus less likely obstruction given moderate fluid distention of small bowel loops in the pelvis. She has no complaints of nausea or vomiting. She does have abdominal distention on exam but not significantly tender.
Last bowel movement was 01/02, loose and burgundy.
Acute blood loss anemia -Hemoglobin improved to 8.5 this morning, has had 1 unit of blood transfused so far. Recheck CBC in the morning.
B12 and folic acid normal. Iron panel noted, no evidence of iron deficiency.
Normal anion gap metabolic acidosis -resolved. Bicarb 24.
BEHZAD -present on admission. Creatinine improving. High BUN to creatinine ratio suggestive of GI bleed, volume depletion. NSAID induced renal insufficiency also playing a role. Denies history of kidney disease but does not have a family physician.
Baseline creatinine unknown. Stop NSAIDs and recheck labs in the morning. IV fluid support.
Hypernatremia -due to dehydration. Use hypotonic IV fluids.
Abdominal aortic aneurysm -incidental finding on CT, 3.1 cm. Findings reported to patient and family, recommend outpatient follow-up with PCP.
Emphysema -suspect related to years of smoking. Findings noted on CT and chest x-ray. Discussed with patient. She quit smoking 3 to 4 years ago.
Rectal prolapse -severe and noted on CT. Patient has no symptoms.
Colonic diverticulosis -noted on CT.
Osteoporosis -on Boniva. She does have an L4 vertebral body fracture on CT. Relatively asymptomatic. Perhaps her back pain 7 weeks ago could be explained by this.
DNR -confirmed with patient.
Anticipated Discharge: Within 24 hours
Subjective/Interval History
-
Date of Service: January 04, 2024
Patient seen and examined. No complaints.
Objective Data
-
Labs:
Laboratory Results
01/04/24
07:41
WBC 21.8 H
Hgb 8.5 L
Hct 24.7 L
Plt Count 263
PT 15.0 H
INR 1.17
Sodium 147 H
Potassium 3.9
Chloride 116 H
Carbon Dioxide 24
BUN 49 H
Creatinine 1.1 H
Glucose 100 H
Calcium 8.0 L
Vital Signs:
Vital Signs
Temp Pulse Resp BP Pulse Ox
97.7 F 92 17 143/56 92
01/04/24 12:36 01/04/24 12:36 01/04/24 12:36 01/04/24 12:36 01/04/24 12:36
I&O
01/03/24 01/04/24 01/05/24
06:59 06:59 06:59
Intake Total 1310 / 1310
Balance 1310 / 1310
Review of Systems
-
History Source: Patient
All other systems: Reviewed and negative
[2024-01-04] MEDS: D5W 1000 IV (13:31)
--- NOTE | 2024-01-04 14:12 | CM ---
Patient to return to home when stable.
Plan; Home when stable.
--- NOTE | 2024-01-04 15:29 | PN.CDI ---
CDI
- -
CDI:
Physician Documentation Request
Admit Date: 01/02/24 12:03
Dear Doctor ,
Please review the following and provide your response in the progress notes.
Clinical Indicators:
Pt admitted with Ecoli sepsis 2/2 UTI / GI bleed /ABLA
Documented per EGD, ' Many non-bleeding cratered and superficial gastric ulcers with no stigmata of bleeding were found in the gastric body and in the prepyloric region of the stomach. The largest lesion was 7 mm in largest dimension. ...'
Clarify which of the following accurately represents the suspected acuity of the ( gastric ulcers ).
Acute
Chronic
Acute on Chronic
Other ( please specify)
Use of terms such as suspected, likely, concern for, or probable (associated with a specific diagnosis that is being evaluated, monitored, or treated as if it exists) are acceptable and can be coded in the inpatient setting, when documented at the
time of discharge.
Thank you,
Kasey Deluca RN
CDI Specialist
[place] [facility]
Please use your independent medical judgment in providing your response.
[2024-01-04] MEDS: CARAFATE 1 GRAM PO ×2 (16:55→22:21)
[2024-01-04] MEDS: PROTONIX 40 MG PO (20:55)
[2024-01-05] VITALS (7 sets, daily range): BP systolic 115–134; BP diastolic 55–74; PULSE 107
--- NOTE | 2024-01-05 07:47 | W.PN.ID1 ---
Addendum entered and electronically signed by Chelsie Magaña MD 01/05/24 17:30:
afebrile
tolerating current therapies
frequency not yet improved
has significant vaginal prolapse - chronic - likely leading to some level of urinary retention
PVR with minimal residual 20 ccs
scheduled voiding reviewed with patient
extend course of cefdinir to 10 days
AW
Original Note:
Date of Service
Date of Service: January 05, 2024
Today's Communication
Continue Cefdinir
Bladder scan
Assessment / Plan
Impression/Assessment:This is a 83 year old female patient with PMH of osteoporosis on Boniva who presented to the ED with fatigue after noticing dark stool a few days ago. In ED, UA showed findings of UTI.
Urosepsis with urine cx + blood cx with E. Coli
Upper GI bleed
Acute Blood Loss Anemia
BEHZAD- improving
Osteoporosis
Plan:
#Urosepsis with blood cx of E. Coli
-CT abd on 01/01: Moderate distention of the right intrarenal collecting system and mild distention of the left intrarenal collecting system. Multiple nonobstructing right intrarenal calculi. No CT evidence for ureteral calculus
-WBC 21.7 improving, Hb 7.4, Cr 0.9 today
- Initially started on ceftriaxone, discontinued
-Transitioned to cefdinir, continue. To finish a 14 day course total upon discharge since WBC continues to be highly elevated
-PCP outpatient follow up recommended for chronic comorbidities
-Bladder scan ordered- possible retention contributing toward slow improvement
Subjective / Review of Systems
Patient has no complaints of dysuria, fever or chills.
Review of Systems: No Fever, No Chills, No Abdominal Pain and No Dysuria
Vital Signs / Physical Exam
Vital Signs
Vital Signs
Temp Pulse Resp BP Pulse Ox
98.8 F 100 16 126/60 94
01/04/24 22:57 01/04/24 22:57 01/04/24 22:57 01/04/24 22:57 01/04/24 22:57
Physical Exam
Constitutional: No Acute Distress
Head: Normocephalic
Cardiovascular: Regular Rate and S1/S2
Pulmonary: Clear
Gastrointestinal: Soft
Skin: Warm and Dry
Neurological: Awake, Alert and Oriented
Objective Data
Lab Data
PT 15.0 Sec (11.4-14.6) H 01/04/24 07:41
INR 1.17 01/04/24 07:41
Estimated Creat Clear 30 ml/min 01/04/24 07:41
Lactic Acid 3.0 mmol/L (0.7-2.0) H 01/02/24 13:38
Total Bilirubin 1.2 mg/dl (0.2-1.3) 01/02/24 08:51
AST 26 U/L (14-36) 01/02/24 08:51
ALT 24 U/L (0-35) 01/02/24 08:51
Alkaline Phosphatase 386 U/L (38-126) H 01/02/24 08:51
Most recent labs reviewed.
Micro Results:
01/02/24 10:16 Blood Culture - Preliminary
Blood/Venous Escherichia coli
Gram Stain - Preliminary
01/02/24 13:38 Salmonella/Shigella Culture - Final
Feces/Stool No Salmonella, Shigella, Aeromonas or Plesiomonas species
isolated.
Campylobacter Culture - Final
No Campylobacter species isolated.
Shiga Toxin Test - Pending
01/02/24 12:38 Blood Culture - Preliminary
Blood/Venous Escherichia coli
Gram Stain - Final
01/02/24 09:08 Urine Culture - Final
Urine Escherichia coli
01/02/24 13:38 C. difficile GDH Antigen & Toxins - Final
Feces/Stool Negative for toxigenic C.difficile
[2024-01-05 08:51] LABS: % Basophils 0.4 % (0-2); % Immature Granulocytes 2.5 % (0-0.5); % Lymphocytes 7.2 % (20.5-51.1); % Monocytes 4.7 % (1.7-9.3); % Neutrophils 84.2 % (42.2-75.2); Absolute Basophils 0.1 10^3/uL (0-0.2); Absolute Eosinophils 0.2 10^3/uL (0-0.7); Absolute Immature Granulocytes 0.6 10^3/uL (0-0.05); Absolute Lymphocytes 1.6 10^3/uL (1.2-3.4); Absolute Neutrophils 18.3 10^3/uL (1.4-6.5); Hematocrit 22.4 % (37.0-47.0); Hemoglobin 7.4 g/dL (12.0-16.0); Mean Corpuscular Hgb 30.5 pg (27.0-31.0); Mean Corpuscular Volume 92.2 fL (81.0-99.0); Mean Platelet Volume 10.6 fL (7.4-10.4); Nucleated Red Blood Cells % 0 %; Platelet Count 343 10^3/uL (130-400); Red Blood Cell Count 2.43 10^6/uL (4.20-5.40); Red Cell Dist. Width 16.2 % (11.5-14.5); White Blood Cell Count 21.7 10^3/uL (4.8-10.8)
[2024-01-05 08:54] LABS: Blood Urea Nitrogen 30 mg/dl (7-17); Calcium 7.6 mg/dl (8.4-10.2); Carbon Dioxide 26 mmol/L (22-30); Chloride 110 mmol/L (98-107); Estimated Creatinine Clearance 36 ml/min; Glucose 98 mg/dl (70-99); Potassium 3.6 mmol/L (3.5-5.1); Sodium 145 mmol/L (135-145); eGFR > 60.00
[2024-01-05] MEDS: OMNICEF 300 MG PO ×2 (09:12→20:55)
[2024-01-05] MEDS: CARAFATE 1 GRAM PO ×4 (09:12→23:19)
[2024-01-05] MEDS: PROTONIX 40 MG PO ×2 (09:12→20:55)
--- NOTE | 2024-01-05 11:13 | W.PN.HOSP.TC ---
Today's Communication/Plan
-
Transfuse
MiraLAX
PT consult
Labs in the morning
Assessment / Plan
Assessment / Plan
Gen-AAOx3, NAD
HEENT-NC, AT, anicteric, clear oral mm
Neck-supple
CV-reg, no M, +S1/S2
Lungs-clear B/L
Abd-soft, NT, ND
Ext-no edema
Musculoskeletal-no cyanosis, clubbing
Skin-warm and dry
Neuro-grossly non-focal
Psych-calm, cooperative
E. coli sepsis due to UTI - continue empiric ceftriaxone. CT scan does show moderate right and mild left hydronephrosis, multiple nonobstructing right intrarenal calculi. No CT evidence for ureteral stones. Hemodynamically stable. Now on
cefdinir as per ID.
Subacute GI bleed -presentation with melena for 48 hours. EGD completed 01/03, LA grade D esophagitis without bleeding, medium size hiatal hernia, nonbleeding gastric ulcers with no stigmata of bleed. Gastritis. Normal duodenum. Continue
Protonix twice daily for 8 weeks then daily. Sucralfate 1 g 4 times daily for 2 weeks as per GI. Needs repeat EGD in 3 months to check for healing. Avoid all NSAIDs.
CT also suggestive of possible ileus less likely obstruction given moderate fluid distention of small bowel loops in the pelvis. She has no complaints of nausea or vomiting. She does have abdominal distention on exam but not significantly tender.
Last bowel movement was 01/02, loose and burgundy.
Acute blood loss anemia -Hemoglobin dropped to 7.4 this morning. Will transfuse second unit of blood today. CBC in the morning.
B12 and folic acid normal. Iron panel noted, no evidence of iron deficiency.
Normal anion gap metabolic acidosis -resolved. Bicarb 24.
BEHZAD -present on admission. Creatinine improving. High BUN to creatinine ratio suggestive of GI bleed, volume depletion. NSAID induced renal insufficiency also playing a role. Denies history of kidney disease but does not have a family physician.
Baseline creatinine unknown. Stop NSAIDs and recheck labs in the morning.
Hypernatremia -due to dehydration. Sodium improved.
Abdominal aortic aneurysm -incidental finding on CT, 3.1 cm. Findings reported to patient and family, recommend outpatient follow-up with PCP.
Emphysema -suspect related to years of smoking. Findings noted on CT and chest x-ray. Discussed with patient. She quit smoking 3 to 4 years ago. Follow-up with pulmonary after discharge.
Chronic vaginal prolapse -outpatient follow-up.
Colonic diverticulosis -noted on CT.
Osteoporosis -on Boniva. She does have an L4 vertebral body fracture on CT. Relatively asymptomatic. Perhaps her back pain 7 weeks ago could be explained by this.
DNR -confirmed with patient.
Dispo -potential discharge in 24 to 48 hours if hemoglobin remains stable. Await PT input. Updated patient's son on the phone. Needs close outpatient follow-up.
Anticipated Discharge: 24 - 48 hours
Subjective/Interval History
-
Date of Service: January 05, 2024
Patient seen and examined. Complaining of fatigue.
Objective Data
-
Labs:
Laboratory Results
01/05/24
07:28
WBC 21.7 H
Hgb 7.4 L
Hct 22.4 L
Plt Count 343 D
Sodium 145
Potassium 3.6
Chloride 110 H
Carbon Dioxide 26
BUN 30 H
Creatinine 0.9
Glucose 98
Calcium 7.6 L
Vital Signs:
Vital Signs
Temp Pulse Resp BP Pulse Ox
98.5 F 110 20 134/73 92
01/05/24 07:30 01/05/24 07:30 01/05/24 07:30 01/05/24 07:30 01/05/24 07:30
I&O
01/04/24 01/05/24 01/06/24
06:59 06:59 06:59
Intake Total 1310 / 1310 2199 / 2199
Balance 1310 / 1310 2199
Review of Systems
-
History Source: Patient
All other systems: Reviewed and negative
[2024-01-05] MEDS: MIRALAX 17 GRAMS PO (11:32)
--- NOTE | 2024-01-05 13:22 | CM ---
Home when stable, no needs.
Plan; Home no needs.
--- NOTE | 2024-01-05 15:56 | VNURNOTE ---
Home Health Liaison met with patient at bedside to discuss [facility] nurse/therapy, visits, schedule and homebound status. Patient is agreeable and understands that visits at home will be 2-3 x per week to assess and teach medical management. Patient
not current with a PCP, she plans on starting with Dr Tyler. She understands that [facility] can assume services once she is seen by PCP. She plans on making PCP appt jagdish after DC. [facility] brochure provided with contact information. Patient is aware
that [facility] will contact them for start of care in 1-2 days after discharge from .
[facility] referral completed in [facility].
[2024-01-05] MEDS: MELATONIN 5 MG PO (20:55)
[2024-01-05] MEDS: CARAFATE PO (20:55)
[2024-01-06 07:45] VITALS: BP 123/68
--- NOTE | 2024-01-06 08:11 | W.PN.ID1 ---
Addendum entered and electronically signed by Chelsie Magaña MD 01/06/24 15:47:
I saw and evaluated the patient. I reviewed the resident�s note and agree with findings and plan as documented in the resident�s note
extend course of cefdinir to 10 days
follow up with PCP
AW
Original Note:
Date of Service
Date of Service: January 06, 2024
Today's Communication
Continue Cefdinir upon discharge
Assessment / Plan
Impression/Assessment:This is a 83 year old female patient with PMH of osteoporosis on Boniva who presented to the ED with fatigue after noticing dark stool a few days ago. In ED, UA showed findings of UTI.
Urosepsis with urine cx + blood cx with E. Coli
Upper GI bleed
Acute Blood Loss Anemia
BEHZAD- improving
Osteoporosis
Plan:
#Urosepsis with blood cx of E. Coli
-CT abd on 01/01: Moderate distention of the right intrarenal collecting system and mild distention of the left intrarenal collecting system. Multiple nonobstructing right intrarenal calculi. No CT evidence for ureteral calculus
-WBC 20.5 improving, Hb 8.8 (after 1 unit transfusion yesterday), Cr 0.9 today
- Initially started on ceftriaxone, discontinued
-Transitioned to cefdinir, continue. To finish a 10 day course total upon discharge since WBC continues to be highly elevated
-Possible urine retention contributing toward slow improvement; denies any urinary symptoms besides mildly increased frequency of urination
-PCP outpatient follow up recommended for chronic comorbidities
Subjective / Review of Systems
Patient is afeb with stable BP. Denies any CP or abdominal pain.
Review of Systems: No Fever, No Chills and No Abdominal Pain
Vital Signs / Physical Exam
Vital Signs
Vital Signs
Temp Pulse Resp BP Pulse Ox
98.3 F 98 16 117/55 93
01/05/24 22:35 01/05/24 22:35 01/05/24 22:35 01/05/24 22:35 01/05/24 22:35
Physical Exam
Constitutional: No Acute Distress
Head: Normocephalic
Cardiovascular: Regular Rate and S1/S2
Pulmonary: Clear
Gastrointestinal: Soft
Skin: Warm and Dry
Neurological: Awake, Alert and Oriented
Objective Data
Lab Data
PT 15.0 Sec (11.4-14.6) H 01/04/24 07:41
INR 1.17 01/04/24 07:41
Estimated Creat Clear 36 ml/min 01/05/24 07:28
Lactic Acid 3.0 mmol/L (0.7-2.0) H 01/02/24 13:38
Total Bilirubin 1.2 mg/dl (0.2-1.3) 01/02/24 08:51
AST 26 U/L (14-36) 01/02/24 08:51
ALT 24 U/L (0-35) 01/02/24 08:51
Alkaline Phosphatase 386 U/L (38-126) H 01/02/24 08:51
Most recent labs reviewed.
Micro Results:
01/02/24 13:38 Salmonella/Shigella Culture - Final
Feces/Stool No Salmonella, Shigella, Aeromonas or Plesiomonas species
isolated.
Campylobacter Culture - Final
No Campylobacter species isolated.
Shiga Toxin Test - Final
No E. coli Shiga Toxin 1 or 2 detected.
01/02/24 12:38 Blood Culture - Final
Blood/Venous Escherichia coli
Gram Stain - Final
01/02/24 10:16 Blood Culture - Preliminary
Blood/Venous Escherichia coli
Gram Stain - Preliminary
01/02/24 09:08 Urine Culture - Final
Urine Escherichia coli
01/02/24 13:38 C. difficile GDH Antigen & Toxins - Final
Feces/Stool Negative for toxigenic C.difficile
[2024-01-06 08:25] LABS: Blood Urea Nitrogen 22 mg/dl (7-17); Calcium 7.4 mg/dl (8.4-10.2); Carbon Dioxide 26 mmol/L (22-30); Chloride 107 mmol/L (98-107); Estimated Creatinine Clearance 47 ml/min; Glucose 107 mg/dl (70-99); Potassium 3.5 mmol/L (3.5-5.1); Sodium 145 mmol/L (135-145); eGFR > 60.00
[2024-01-06 08:28] LABS: % Basophils 0.3 % (0-2); % Eosinophils 0.6 % (0-6); % Immature Granulocytes 1.6 % (0-0.5); % Monocytes 5.2 % (1.7-9.3); % Neutrophils 85.3 % (42.2-75.2); Absolute Basophils 0.1 10^3/uL (0-0.2); Absolute Eosinophils 0.1 10^3/uL (0-0.7); Absolute Immature Granulocytes 0.3 10^3/uL (0-0.05); Absolute Lymphocytes 1.4 10^3/uL (1.2-3.4); Absolute Monocytes 1.1 10^3/uL (0.1-0.6); Absolute Neutrophils 17.5 10^3/uL (1.4-6.5); Hematocrit 25.4 % (37.0-47.0); Hemoglobin 8.8 g/dL (12.0-16.0); Mean Corp Hgb Conc. 34.6 g/dL (33.0-37.0); Mean Corpuscular Hgb 31.7 pg (27.0-31.0); Mean Corpuscular Volume 91.4 fL (81.0-99.0); Mean Platelet Volume 10.5 fL (7.4-10.4); Nucleated Red Blood Cells % 0 %; Platelet Count 415 10^3/uL (130-400); Red Blood Cell Count 2.78 10^6/uL (4.20-5.40); Red Cell Dist. Width 15.9 % (11.5-14.5); White Blood Cell Count 20.5 10^3/uL (4.8-10.8)
[2024-01-06] MEDS: OMNICEF 300 MG PO (08:55)
[2024-01-06] MEDS: CARAFATE 1 GRAM PO ×2 (08:55→11:58)
[2024-01-06] MEDS: PROTONIX 40 MG PO (08:55)
[2024-01-06] MEDS: MIRALAX 17 GRAMS PO (08:55)
--- NOTE | 2024-01-06 09:43 | W.PN.HOSP.TC ---
Addendum entered and electronically signed by Arvind Ordoñez DO 01/06/24 12:51:
I updated patient's son Jerzy on the phone. All questions answered.
Original Note:
Today's Communication/Plan
-
Bowel regimen
Discharge
Assessment / Plan
Assessment / Plan
Gen-AAOx3, NAD
HEENT-NC, AT, anicteric, clear oral mm
Neck-supple
CV-reg, no M, +S1/S2
Lungs-clear B/L
Abd-soft, NT, ND
Ext-no edema
Musculoskeletal-no cyanosis, clubbing
Skin-warm and dry
Neuro-grossly non-focal
Psych-calm, cooperative
E. coli sepsis due to UTI - CT scan does show moderate right and mild left hydronephrosis, multiple nonobstructing right intrarenal calculi. No CT evidence for ureteral stones. Hemodynamically stable. Now on cefdinir as per ID for 10 days.
Subacute GI bleed -presentation with melena for 48 hours. EGD completed 01/03, LA grade D esophagitis without bleeding, medium size hiatal hernia, nonbleeding gastric ulcers with no stigmata of bleed. Gastritis. Normal duodenum. Continue
Protonix twice daily for 8 weeks then daily. Sucralfate 1 g 4 times daily for 2 weeks as per GI. Needs repeat EGD in 3 months to check for healing. Avoid all NSAIDs.
CT also suggestive of possible ileus less likely obstruction given moderate fluid distention of small bowel loops in the pelvis. She has no complaints of nausea or vomiting. She does have abdominal distention on exam but not significantly tender.
Last bowel movement was 01/02, loose and burgundy.
Bowel regimen ordered.
Acute blood loss anemia -Hemoglobin improved to 8.8 after second unit PRBC. Lightheadedness resolved.
B12 and folic acid normal. Iron panel noted, no evidence of iron deficiency.
Normal anion gap metabolic acidosis -resolved. Bicarb 26.
BEHZAD -present on admission. Creatinine improving. High BUN to creatinine ratio suggestive of GI bleed, volume depletion. NSAID induced renal insufficiency also playing a role. Denies history of kidney disease but does not have a family physician.
Baseline creatinine unknown. Avoid NSAIDs in the future, discussed with patient.
Hypernatremia -due to dehydration. Sodium improved.
Abdominal aortic aneurysm -incidental finding on CT, 3.1 cm. Findings reported to patient and family, recommend outpatient follow-up with PCP.
Emphysema -suspect related to years of smoking. Findings noted on CT and chest x-ray. Discussed with patient. She quit smoking 3 to 4 years ago. Follow-up with pulmonary after discharge.
Chronic vaginal prolapse -outpatient follow-up with gynecology. Patient states she wants to get it treated.
Colonic diverticulosis -noted on CT.
Osteoporosis -on Boniva. She does have an L4 vertebral body fracture on CT. Relatively asymptomatic. Perhaps her back pain 7 weeks ago could be explained by this.
DNR -confirmed with patient.
Dispo -anticipate discharge today. Needs outpatient follow-up with PCP, GI, gynecology.
32 minutes spent in discharge process.
Anticipated Discharge: Today
Subjective/Interval History
-
Date of Service: January 06, 2024
Patient seen and examined. Complaining of constipation.
Objective Data
-
Labs:
Laboratory Results
01/06/24
07:13
WBC 20.5 H
Hgb 8.8 L
Hct 25.4 L
Plt Count 415 H D
Sodium 145
Potassium 3.5
Chloride 107
Carbon Dioxide 26
BUN 22 H
Creatinine 0.7
Glucose 107 H
Calcium 7.4 L
Vital Signs:
Vital Signs
Temp Pulse Resp BP Pulse Ox
99.5 F 109 20 123/68 91
01/06/24 07:45 01/06/24 07:45 01/06/24 07:45 01/06/24 07:45 01/06/24 07:45
I&O
01/05/24 01/06/24 01/07/24
06:59 06:59 06:59
Intake Total 0 / 0 1220 / 1220
Balance 2199 / 0 1220 / 1220
Review of Systems
-
History Source: Patient
All other systems: Reviewed and negative
--- NOTE | 2024-01-06 09:51 | W.DS.TRANS ---
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
-
Discharge Instructions:
Discharge Diagnosis/Procedures Sepsis, UTI, GI bleed, acute anemia, acute
kidney injury
Diet Other diet
Additional Diets High-fiber diet
Activity As tolerated
Driving Restrictions As prior to admission
Bathing Restrictions None
Blood Work CBC in 1 week with your primary care doctor
Instructions:
Stand-Alone Forms:
Changes to Home Medications: Yes
Discharge Medications:
DC Medications w/original date entered in [employer]
ibandronate 150 mg tablet 150 mg PO QMONTH OSTEOPOROSIS 01/02/24
cefdinir 300 mg capsule 300 mg PO BID #18 caps 01/06/24
pantoprazole 40 mg tablet,delayed release 40 mg PO BID #60 tabs 01/06/24
polyethylene glycol 3350 17 gram oral powder packet (HealthyLax) 17 g PO DAILY #18 ea 01/06/24
sucralfate 1 gram tablet 1 g PO ACHS #50 tabs 01/06/24
Home Medication Changes
Stop naproxen.
Pending Results: No
[2024-01-06] MEDS: KCL 40 MEQ PO (09:54)
[2024-01-06] MEDS: DULCOLAX 10 MG RECTAL (09:55)
--- NOTE | 2024-01-06 09:55 | CM ---
Plan is to home with [facility].
Plan; Home with [facility].
[2024-01-06] MEDS: CITROMA 300 ML PO (13:00)
--- NOTE | 2024-01-06 13:24 | PTCARENOTE ---
Addendum entered by Tina Clinton RN 01/06/24 14:27:
Pt had a large liquid black BM after Mag Citrate. Will be ready for discharge.
Original Note:
Pt given a dulcolax suppository earlier with minimal results. Pt receiving 1 bottle of Mag Citrate now. Will await results.
[2024-01-06 14:32] VITALS: BP 123/69
--- NOTE | 2024-01-09 16:36 | W.PN.UPDATE ---
Update Note
Progress Note Update
acute gastric ulcer was noted without active bleeding .
== END 2024-01-06 15:12 | disposition home or self-care (01) | DRG 871 ==
LOC: 4 WEST ACU 12:03
PROVIDERS: Internal Medicine Gastroenterology; Nurse Practitioner Adult Health; Physician Assistant; ADMITTING PHYSICIAN Hospitalist; CONSULT PHYSICIAN Internal Medicine Gastroenterology; CONSULT PHYSICIAN Student in an Organized Health Care Education/Training Program; EMERGENCY PHYSICIAN Emergency Medicine
PROC: 30233N1 Transfusion of Nonautologous Red Blood Cells into Peripheral Vein, Percutaneous Approach (ICD-10-PCS; 2024-01-03)
PROC: 0DB68ZX Excision of Stomach, Via Natural or Artificial Opening Endoscopic, Diagnostic (ICD-10-PCS; 2024-01-04)
PROC: 0DB78ZX Excision of Stomach, Pylorus, Via Natural or Artificial Opening Endoscopic, Diagnostic (ICD-10-PCS; 2024-01-04)
DX: A41.51 Sepsis due to Escherichia coli [E. coli] (principal); K21.01 Gastro-esophageal reflux disease with esophagitis, with bleeding; K29.71 Gastritis, unspecified, with bleeding; K25.4 Chronic or unspecified gastric ulcer with hemorrhage; D62 Acute posthemorrhagic anemia; N17.9 Acute kidney failure, unspecified; N13.6 Pyonephrosis; E87.0 Hyperosmolality and hypernatremia; Z66 Do not resuscitate; M81.0 Age-related osteoporosis without current pathological fracture; J44.9 Chronic obstructive pulmonary disease, unspecified; J43.9 Emphysema, unspecified; I71.40 Abdominal aortic aneurysm, without rupture, unspecified; T39.395A Adverse effect of other nonsteroidal anti-inflammatory drugs [NSAID], initial encounter; N81.10 Cystocele, unspecified; K44.9 Diaphragmatic hernia without obstruction or gangrene; G89.29 Other chronic pain; K57.30 Diverticulosis of large intestine without perforation or abscess without bleeding; E86.0 Dehydration; Z79.899 Other long term (current) drug therapy; Z79.83 Long term (current) use of bisphosphonates; Z86.711 Personal history of pulmonary embolism
CPT/HCPCS: 88305; 88312; 71046; 74176; 80048; 80053; 81003; 81015; 82607; 82728; 82746; 83540; 83550; 83605; 85025; 85045; 85610; 86850; 86900; 86901; 86920; 87040; 87045; 87046; 87077; 87086; 87149; 87186; 87205; 87324; 87427; 87449; 88342; 96361; 96374; 97163; 99285; P9016

== ENCOUNTER → 2024-01-17 12:54 | Outpatient (REF) | payer MEDICARE, OTHER, SELFPAY | LOC: RAD 12:54 | PROVIDERS: ATTENDING PHYSICIAN Nurse Practitioner Family | DX: R06.02 Shortness of breath (principal); R00.0 Tachycardia, unspecified | CPT/HCPCS: 71275; Q9967 ==

== ENCOUNTER → 2024-01-18 15:46 | Outpatient (REF) | payer MEDICARE, OTHER, SELFPAY | LOC: RCS 15:46 | PROVIDERS: ATTENDING PHYSICIAN Nurse Practitioner Family | DX: K25.0 Acute gastric ulcer with hemorrhage (principal); R60.0 Localized edema; R06.02 Shortness of breath; R00.0 Tachycardia, unspecified; Z09 Encounter for follow-up examination after completed treatment for conditions other than malignant neoplasm | CPT/HCPCS: 93005; 93306 ==

== ENCOUNTER → 2024-01-31 07:57 | Outpatient (REF) | payer MEDICARE, OTHER, SELFPAY | LOC: WOUND 07:57 | PROVIDERS: ATTENDING PHYSICIAN Surgery; FAMILY PHYSICIAN Nurse Practitioner Family | DX: I70.232 Atherosclerosis of native arteries of right leg with ulceration of calf (principal); L97.212 Non-pressure chronic ulcer of right calf with fat layer exposed; I87.2 Venous insufficiency (chronic) (peripheral) | CPT/HCPCS: 11042; 99204 ==

== ENCOUNTER → 2024-02-06 08:37 | Outpatient (REF) | payer MEDICARE, OTHER, SELFPAY | LOC: WOUND 08:37 | PROVIDERS: ATTENDING PHYSICIAN Surgery; FAMILY PHYSICIAN Internal Medicine Geriatric Medicine | DX: I70.232 Atherosclerosis of native arteries of right leg with ulceration of calf (principal); L97.212 Non-pressure chronic ulcer of right calf with fat layer exposed; I87.2 Venous insufficiency (chronic) (peripheral) | CPT/HCPCS: 11042 ==

== ENCOUNTER → 2024-02-13 09:10 | Outpatient (REF) | payer MEDICARE, OTHER, SELFPAY | LOC: WOUND 09:10 | PROVIDERS: ATTENDING PHYSICIAN Surgery; FAMILY PHYSICIAN Nurse Practitioner Family | DX: I70.232 Atherosclerosis of native arteries of right leg with ulceration of calf (principal); L97.212 Non-pressure chronic ulcer of right calf with fat layer exposed; I87.2 Venous insufficiency (chronic) (peripheral) | CPT/HCPCS: 11042 ==

== ENCOUNTER → 2024-02-14 06:43 | Outpatient (REF) | payer MEDICARE, OTHER, SELFPAY | LOC: RSP 06:43 | PROVIDERS: ATTENDING PHYSICIAN Nurse Practitioner Family | DX: Z09 Encounter for follow-up examination after completed treatment for conditions other than malignant neoplasm (principal); R06.02 Shortness of breath | CPT/HCPCS: 94060 ==

== ENCOUNTER → 2024-02-20 09:08 | Outpatient (REF) | payer MEDICARE, OTHER, SELFPAY | LOC: WOUND 09:08 | PROVIDERS: ATTENDING PHYSICIAN Surgery; FAMILY PHYSICIAN Nurse Practitioner Family | DX: I70.232 Atherosclerosis of native arteries of right leg with ulceration of calf (principal); L97.212 Non-pressure chronic ulcer of right calf with fat layer exposed; I73.9 Peripheral vascular disease, unspecified | CPT/HCPCS: 11042 ==

== ENCOUNTER → 2024-03-01 06:56 | Outpatient (REF) | payer MEDICARE, OTHER, SELFPAY | LOC: RAD 06:56 | PROVIDERS: ATTENDING PHYSICIAN Surgery; FAMILY PHYSICIAN Nurse Practitioner Family | DX: I70.232 Atherosclerosis of native arteries of right leg with ulceration of calf (principal); I73.9 Peripheral vascular disease, unspecified; I87.2 Venous insufficiency (chronic) (peripheral) | CPT/HCPCS: 93922; 93971 ==

== ENCOUNTER → 2024-03-05 08:34 | Outpatient (REF) | payer MEDICARE, OTHER, SELFPAY | LOC: WOUND 08:34 | PROVIDERS: ATTENDING PHYSICIAN Surgery; FAMILY PHYSICIAN Nurse Practitioner Family | DX: I70.232 Atherosclerosis of native arteries of right leg with ulceration of calf (principal); L97.212 Non-pressure chronic ulcer of right calf with fat layer exposed; I87.2 Venous insufficiency (chronic) (peripheral) | CPT/HCPCS: 11042 ==

== ENCOUNTER → 2024-03-20 08:40 | Outpatient (REF) | payer MEDICARE, OTHER, SELFPAY | LOC: WOUND 08:40 | PROVIDERS: ATTENDING PHYSICIAN Surgery; FAMILY PHYSICIAN Nurse Practitioner Family | DX: I70.232 Atherosclerosis of native arteries of right leg with ulceration of calf (principal); L97.212 Non-pressure chronic ulcer of right calf with fat layer exposed; I73.9 Peripheral vascular disease, unspecified; I87.2 Venous insufficiency (chronic) (peripheral) | CPT/HCPCS: 11042 ==

== ENCOUNTER → 2024-03-23 12:54 | Outpatient (REF) | payer MEDICARE, OTHER, SELFPAY | LOC: HWRAD 12:54 | PROVIDERS: ATTENDING PHYSICIAN Student in an Organized Health Care Education/Training Program; FAMILY PHYSICIAN Nurse Practitioner Family | DX: M81.0 Age-related osteoporosis without current pathological fracture (principal); I26.99 Other pulmonary embolism without acute cor pulmonale; N20.0 Calculus of kidney; R09.89 Other specified symptoms and signs involving the circulatory and respiratory systems; R70.0 Elevated erythrocyte sedimentation rate; S32.009S Unspecified fracture of unspecified lumbar vertebra, sequela; T14.90XD Injury, unspecified, subsequent encounter | CPT/HCPCS: 72052; 72072; 72100 ==

== ENCOUNTER → 2024-04-03 08:44 | Outpatient (REF) | payer MEDICARE, OTHER, SELFPAY | LOC: WOUND 08:44 | PROVIDERS: ATTENDING PHYSICIAN Surgery; FAMILY PHYSICIAN Nurse Practitioner Family | DX: I70.232 Atherosclerosis of native arteries of right leg with ulceration of calf (principal); L97.212 Non-pressure chronic ulcer of right calf with fat layer exposed; I87.2 Venous insufficiency (chronic) (peripheral) | CPT/HCPCS: 97597 ==

== ENCOUNTER → 2024-04-03 11:34 | Outpatient (REF) | payer MEDICARE, OTHER, SELFPAY | LOC: HWRCS 11:34 | PROVIDERS: ATTENDING PHYSICIAN Student in an Organized Health Care Education/Training Program; FAMILY PHYSICIAN Nurse Practitioner Family | DX: I50.20 Unspecified systolic (congestive) heart failure (principal); R94.31 Abnormal electrocardiogram [ECG] [EKG] | CPT/HCPCS: 78452; 93017; A9500; J2785 ==

== ENCOUNTER → 2024-04-17 08:44 | Outpatient (REF) | payer MEDICARE, OTHER, SELFPAY | LOC: WOUND 08:44 | PROVIDERS: ATTENDING PHYSICIAN Surgery; FAMILY PHYSICIAN Nurse Practitioner Family | DX: I70.232 Atherosclerosis of native arteries of right leg with ulceration of calf (principal); L97.212 Non-pressure chronic ulcer of right calf with fat layer exposed; I87.2 Venous insufficiency (chronic) (peripheral) | CPT/HCPCS: 11042 ==

== ENCOUNTER → 2024-04-25 08:11 | Outpatient (REF) | payer MEDICARE, OTHER, SELFPAY | LOC: HWRAD 08:11 | PROVIDERS: ATTENDING PHYSICIAN Obstetrics & Gynecology; FAMILY PHYSICIAN Nurse Practitioner Family | DX: N81.3 Complete uterovaginal prolapse (principal) | CPT/HCPCS: 76830; 76856 ==

== ENCOUNTER 2024-05-04 06:10 | Day surgery (SDC) | payer MEDICARE, OTHER, SELFPAY ==
[2024-05-04 08:14] VITALS: BMI 20.4
[2024-05-04 08:17] VITALS: BP 136/71
[2024-05-04 10:26] VITALS: BP 110/45
[2024-05-04 10:27] VITALS: BP 110/45
[2024-05-04 10:30] VITALS: BP 134/50
[2024-05-04 10:45] VITALS: BP 135/58
[2024-05-04 11:00] VITALS: BP 129/68
== END 2024-05-04 11:15 | disposition home or self-care (01) ==
LOC: SDS 06:10
PROVIDERS: ATTENDING PHYSICIAN Internal Medicine Gastroenterology
DX: Z12.11 Encounter for screening for malignant neoplasm of colon (principal); K57.30 Diverticulosis of large intestine without perforation or abscess without bleeding; K64.8 Other hemorrhoids; K29.70 Gastritis, unspecified, without bleeding; K44.9 Diaphragmatic hernia without obstruction or gangrene; K31.89 Other diseases of stomach and duodenum; Z87.11 Personal history of peptic ulcer disease
CPT/HCPCS: 43235; G0121

== ENCOUNTER → 2024-05-08 08:50 | Outpatient (REF) | payer MEDICARE, OTHER, SELFPAY | LOC: WOUND 08:50 | PROVIDERS: ATTENDING PHYSICIAN Surgery; FAMILY PHYSICIAN Nurse Practitioner Family | DX: I70.232 Atherosclerosis of native arteries of right leg with ulceration of calf (principal); L97.212 Non-pressure chronic ulcer of right calf with fat layer exposed; I87.2 Venous insufficiency (chronic) (peripheral) | CPT/HCPCS: 11042 ==

== ENCOUNTER → 2024-05-18 07:23 | Outpatient (REF) | payer MEDICARE, OTHER, SELFPAY ==
[2024-05-18 08:52] LABS: Hematocrit 39.1 % (37.0-47.0); Hemoglobin 12.9 g/dL (12.0-16.0); Mean Corpuscular Hgb 30.1 pg (27.0-31.0); Mean Corpuscular Volume 91.1 fL (81.0-99.0); Mean Platelet Volume 9.9 fL (7.4-10.4); Platelet Count 381 10^3/uL (130-400); Red Blood Cell Count 4.29 10^6/uL (4.20-5.40); Red Cell Dist. Width 14.5 % (11.5-14.5)
[2024-05-18 09:22] LABS: Blood Urea Nitrogen 17 mg/dl (7-17); Calcium 9.6 mg/dl (8.4-10.2); Carbon Dioxide 28 mmol/L (22-30); Chloride 101 mmol/L (98-107); Glucose 135 mg/dl (70-99); Potassium 3.2 mmol/L (3.5-5.1); Sodium 141 mmol/L (135-145); eGFR > 60.00
== END ==
LOC: SDSPAT 07:23
PROVIDERS: ATTENDING PHYSICIAN Obstetrics & Gynecology; FAMILY PHYSICIAN Nurse Practitioner Family
DX: Z01.818 Encounter for other preprocedural examination (principal)
CPT/HCPCS: 36415; 80048; 85027; 86850; 86900; 86901

== ENCOUNTER → 2024-05-22 08:48 | Outpatient (REF) | payer MEDICARE, OTHER, SELFPAY | LOC: WOUND 08:48 | PROVIDERS: ATTENDING PHYSICIAN Surgery; FAMILY PHYSICIAN Nurse Practitioner Family | DX: I70.232 Atherosclerosis of native arteries of right leg with ulceration of calf (principal); L97.212 Non-pressure chronic ulcer of right calf with fat layer exposed; I73.9 Peripheral vascular disease, unspecified; I87.2 Venous insufficiency (chronic) (peripheral) | CPT/HCPCS: 11042 ==

== ENCOUNTER 2024-05-28 06:14 | Day surgery (SDC) | payer MEDICARE, OTHER, SELFPAY ==
[2024-05-18 14:04] VITALS: BMI 19.4
--- NOTE | 2024-05-21 09:39 | PTCARENOTE ---
Abnormal WBC 19.0 and K+3.2 collected on 05/18/24, reported to Cher at Dr Jung's office.
--- NOTE | 2024-05-22 13:14 | PTCARENOTE ---
Patients 05/18 potassium- 3.2- reviewed by Dr. Pond- no additional interventions required.
[2024-05-28] VITALS (14 sets, daily range): BP systolic 106–175; BP diastolic 52–86; BMI 19.4
[2024-05-28] MEDS: Pyridium 200 MG PO (08:28)
[2024-05-28] MEDS: NORMOSOL-R/PLASMALYTE-A 1000 IV (08:28)
[2024-05-28] MEDS: LASIX 10 MG IV (12:38)
--- NOTE | 2024-05-28 13:46 | SUR.PHASEI ---
1320 patient in pacu - comfortable. normally takes lasix daily. no lasix today, rales right lung on admission. clear to basilar rales with coughing and deep breathing, However - difficult weaning O2 - sats to 85 on room air. Using IS - pulls
volumes of 750 to 1500ml. not short of breath. Review assess with Dr Verduzco. Lasix 10 mg given IV with good output. Herron backfilled with 300cc NS and then balloon deflated and herron discontinued .. Tolerated well. respirations comfortable.
Sats 89-95% on room air now - Dr Verduzco advised. Okay with discharge to [facility]
== END 2024-05-28 14:35 | disposition home or self-care (01) ==
LOC: SDS 06:14
PROVIDERS: ATTENDING PHYSICIAN Obstetrics & Gynecology; FAMILY PHYSICIAN Nurse Practitioner Family
DX: N81.3 Complete uterovaginal prolapse (principal); N95.8 Other specified menopausal and perimenopausal disorders; N39.3 Stress incontinence (female) (male); N36.41 Hypermobility of urethra
CPT/HCPCS: 57288; 57120; 57250; C1713; C1771

== ENCOUNTER → 2024-06-19 08:51 | Outpatient (REF) | payer MEDICARE, OTHER, SELFPAY | LOC: WOUND 08:51 | PROVIDERS: ATTENDING PHYSICIAN Surgery; FAMILY PHYSICIAN Nurse Practitioner Family | DX: I70.232 Atherosclerosis of native arteries of right leg with ulceration of calf (principal); L97.212 Non-pressure chronic ulcer of right calf with fat layer exposed; I73.9 Peripheral vascular disease, unspecified; I87.2 Venous insufficiency (chronic) (peripheral) | CPT/HCPCS: 11042 ==

== ENCOUNTER 2024-06-29 06:04 | Day surgery (SDC) | payer MEDICARE, OTHER, SELFPAY ==
[2024-06-29] VITALS (37 sets, daily range): BP systolic 114–153; BP diastolic 40–88; BMI 21.6
[2024-06-29 06:55] LABS: Hematocrit 41.2 % (37.0-47.0); Hemoglobin 13.6 g/dL (12.0-16.0); Mean Corpuscular Hgb 31.3 pg (27.0-31.0); Mean Corpuscular Volume 94.7 fL (81.0-99.0); Mean Platelet Volume 9.8 fL (7.4-10.4); Platelet Count 252 10^3/uL (130-400); Red Blood Cell Count 4.35 10^6/uL (4.20-5.40); Red Cell Dist. Width 14.3 % (11.5-14.5); White Blood Cell Count 9.1 10^3/uL (4.8-10.8)
[2024-06-29 07:10] LABS: INR 0.94; PT 13.1 Sec (11.4-14.6)
[2024-06-29 07:11] LABS: APTT 27.8 Sec (23.4-35.0)
--- NOTE | 2024-06-29 07:14 | W.SUR.PREOP ---
Pre-Operative Surgical Note
-
I have examined this patient prior to the performance of the scheduled procedure.
The patient's condition is unchanged from the time of the current History and
Physical and the patient is able to undergo the scheduled procedure.
--- NOTE | 2024-06-29 07:28 | HP.FOC2 ---
Focused History & Physical
Chief Complaint
HPI:
Chief Complaint: PAD
HPI / Indication for Planned Procedure: This is a 83 year old female with significant past medical history for osteoporosis, lumbar fracture, GI bleed, urosepsis, pulmonary embolism, skin cancer, kidney stones, and peripheral arterial disease who
presents to [facility] for scheduled right lower extremity angiogram with Dr. Hayden Tanner III for peripheral arterial disease. Patient denies recent illness, trauma, or hospitalization. Denies nausea, vomiting, fever, coughs, and chills.
Relevant Past Medical History: Other (osteoporosis, lumbar fracture, GI bleed, urosepsis, pulmonary embolism, skin cancer, kidney stones, and peripheral arterial disease)
Relevant Social History: Tobacco Use (Former smoker)
Review of Systems
Review of Pertinent Systems: All Systems Negative
Medication
See Medication form for detailed medications: Yes
Medication List (including Herbals & OTC):
Benefiber (guar gum) 3 tbsp PO DAILY 05/04/24
ascorbic acid (vitamin C) 500 mg tablet (Vitamin C) 500 mg PO DAILY 05/04/24
furosemide 20 mg tablet 20 mg PO DAILY 05/04/24
metoprolol succinate 100 mg tablet,extended release 24 hr 100 mg PO DAILY 05/04/24
pantoprazole 40 mg tablet,delayed release 40 mg PO MOWEFR 05/04/24
rosuvastatin 5 mg tablet 5 mg PO QPM 05/04/24
umeclidinium 62.5 mcg-vilanterol 25 mcg/actuation powdr for inhalation (Anoro Ellipta) 1 inh inhalation DAILY 05/04/24
acetaminophen 325 mg tablet (Tylenol) 325 mg PO PRN PRN headache 05/21/24
diphenhydramine HCl 25 mg capsule (Benadryl) 25 mg PO HSPRN PRN insomnia 05/21/24
sacubitril 24 mg-valsartan 26 mg tablet (Entresto) 1 tab PO BID 05/21/24
estradiol 0.01% (0.1 mg/gram) vaginal cream 1 g vaginal SUWE 06/25/24
ferrous sulfate 325 mg (65 mg iron) tablet (iron) 325 mg PO MOWEFR 06/25/24
Cranberry 4200mg W/ Vitamin C 40 Mg 1 cap PO DAILY 06/29/24
melatonin 5 mg capsule 5 mg PO HSPRN PRN sleep 06/29/24
Medications Reviewed: Yes
Allergies and Reactions
Patient has Allergies: No
Noted Allergies and Reactions:
Allergy/AdvReac Type Severity Reaction Status Date / Time
No Known Allergies Allergy Verified 06/29/24 06:29
Pertinent Physical Exam
All Other Systems: Negative
Head/Neck: Normal
Lungs: Normal (BL lungs CTA)
Heart: Normal (RRR)
Abdomen: Normal (NTND)
Extremities: Other (unable to palpate distal BL LE pulses )
Neurological: Normal
Diagnosis / Assessment
Diagnosis: 83 year old female with peripheral arterial disease
Plan / Procedure
Plan: Will proceed with scheduled right lower extremity angiogram with Dr. Hayden Tanner III
Anesthesia/Sedation to be done by Anesthesia Provider: Yes
[2024-06-29 07:53] LABS: Blood Urea Nitrogen 22 mg/dl (7-17); Calcium 10.2 mg/dl (8.4-10.2); Carbon Dioxide 25 mmol/L (22-30); Chloride 106 mmol/L (98-107); Estimated Creatinine Clearance 36 ml/min; Glucose 116 mg/dl (70-99); Potassium 3.8 mmol/L (3.5-5.1); Sodium 141 mmol/L (135-145); eGFR > 60.00
--- NOTE | 2024-06-29 09:10 | W.SUR.POST ---
Surgical Immediate Post Op
Note
Pre Op Diagnosis: PAD
Post Op Diagnosis: PAD
Procedure Performed: Right lower extremity arteriogram, drug-coated balloon angioplasty of the SFA/popliteal artery
Primary Surgeon: Flores
Anesthesia: Local and sedation
Estimated Blood Loss: <2cc
Fluids: See anesthesia flowsheet
Drains/Shunts: None
Specimens/Cultures: None
Doppler/Duplex/Angio (Y/N): Y
Complications: None
Operative Findings: Successful DCB
[2024-06-29] MEDS: LOW STRENGTH ASPIRIN 81 MG PO (09:55)
[2024-06-29] MEDS: PLAVIX 300 MG PO (09:55)
[2024-06-29] MEDS: NSS 1000 IV (11:07)
--- NOTE | 2024-06-29 12:58 | OR.RPT ---
Operative Report
Operative Report
Date of Operation: 06/29/2024
Pre Op Diagnosis:
1. [place] artery atherosclerosis with right lateral calf ulceration
2. Debilitating left calf claudication
Post Op Diagnosis:
1. [place] artery atherosclerosis with right lateral calf ulceration
2. Debilitating left calf claudication
Procedure:
1.) Drug-coated balloon angioplasty to right superficial femoral artery and popliteal artery (5 mm x 220 mm and 5 mm x 150 mm Lutonix DCB)
2.) Diagnostic aortobiiliac arteriogram
3.) Diagnostic BILATERAL lower extremity arteriograms
4.) Intravascular ultrasound to right distal external iliac artery, common femoral artery, superficial femoral artery, popliteal artery, tibioperoneal trunk and peroneal artery
5.) Ultrasound-guided percutaneous access to the left common femoral artery
Surgeon: Hayden Tanner III, MD
Anesthesia: Sedation with local
Fluoroscopy:
21.7 min
52 mGy
13.58 gy.cm2
Complications: None
Estimated Blood Loss: Less than 20 cc
History and Indications for Procedure: 83-year-old female with chronic nonhealing right lateral calf ulceration in the setting of peripheral arterial occlusive disease.
Procedure in Detail: Laura Chambers was correctly identified and placed supine on the operating table. After adequate induction of anesthesia the bilateral groins were prepped and draped in the usual sterile fashion. A timeout was performed with the
nursing and anesthesia staff confirming the patient's identity as well as the nature and laterality of the procedure.
The left common femoral artery was identified under ultrasound guidance. The artery was patent. The superior and inferior aspects of the femoral head were identified with radiographic guidance and marked at the skin level. The proposed puncture site
was infiltrated with local anesthesia. Under ultrasound guidance we accessed the left common femoral artery with a micropuncture needle and upsized to a 5 Fr sheath over a Extreme Startupsson wire. The wire and a WorkshopLivepherPhizzbo hook flush catheter were advanced into
the distal abdominal aorta and a diagnostic aorto-biiliac arteriogram was performed:
AORTO-ILIAC ARTERIOGRAM:
Aorta: Infrarenal abdominal aortic aneurysm identified. Peripherally calcified. No significant stenosis identified
Right common iliac artery: Peripherally calcified. Patent with no significant stenosis identified
Right external iliac artery: Patent with no significant stenosis identified
Left common iliac artery: Peripherally calcified. Patent with no significant stenosis identified
Left external iliac artery: Patent with no significant stenosis identified
Under roadmap guidance using a Glidewire and the [employer] NeterPhizzbo hook catheter we selected the right common iliac artery and then the external iliac artery. A catheter was tracked up and over the aortic bifurcation and placed in the distal external iliac
artery. A diagnostic right lower extremity arteriogram was then performed which demonstrated the following:
RIGHT LOWER EXTREMITY:
Common femoral artery: Patent with no significant stenosis identified
Profunda femoral artery: Patent with no significant stenosis identified
Superficial femoral artery: Patent proximal segment. Mid and distal segments with scattered high-grade stenosis and segmental occlusion
Popliteal artery: Reconstituted above the knee. Identified moderate stenosis above/behind the knee. Patent below the knee with no stenosis identified
Anterior tibial artery: Patent proximally but occluded shortly thereafter with no distal reconstitution
Tibioperoneal trunk: Patent with mild stenosis identified
Peroneal artery: Patent as the single vessel tibial artery vessel. No significant stenosis identified. Robust branches at the ankle which reconstitute the dorsalis pedis artery and the plantar branches in the foot
Posterior tibial artery: Occluded
ENDOVASCULAR INTERVENTION: Systemic heparin was administered. Exchanged out for a 6 Fr 45 cm sheath over a Storq wire. Selected the right superficial femoral artery under roadmap guidance with Quickcross catheter and glidewire. The SFA/popliteal
artery occlusive disease was crossed with a Quickcross and Glidewire. The wire and catheter were advanced into the popliteal artery and subtraction angio confirmed proper position in the true lumen. Exchanged out for a 0.014 wire.
A 0.014 IVUS catheter was then used for diagnostic imaging of the lower extremity and demonstrated the following:
External iliac artery-5.5 mm minimum, 6.4 mm maximum
Common femoral artery -4.3 mm minimum, 4.9 mm maximum
Proximal SFA -4.6 mm minimum, 5 mm maximum
Mid SFA -4.6 mm minimum, 5 mm maximum. Arterial wall calcification identified. Soft luminal plaque identified
Distal SFA -3.7 mm minimum, 3.3 mm maximum. Arterial wall calcification identified. Soft luminal plaque identified.
Above-knee popliteal artery -4.3 mm minimum, 4.6 mm maximum
Below-knee popliteal artery -2.9 mm minimum, 3.5 mm maximum
Tibioperoneal trunk-3 mm minimum, 3.3 mm maximum
Peroneal artery-2.4 mm minimum, 2.8 mm maximum
The IVUS catheter was then removed over the wire. A 4 mm x 220 angioplasty balloon was placed across the occluded segment under roadmap guidance and used for predilatation. The balloon was inflated to nominal pressure and then deflated and removed
over the wire. I followed this with a 5 mm x 220 mm Lutonix drug-coated balloon. This was placed across the superficial femoral artery and above-knee popliteal artery disease under roadmap guidance. The balloon was inflated to nominal pressure
and held in place for 3 minutes before deflating and removing over the wire. The more distal disease in the popliteal artery was then treated with a 5 mm x 150 mm Lutonix drug-coated balloon. Once again this was positioned in the desired location
under roadmap guidance. The balloon was inflated to nominal pressure, held in place for 3 minutes and then slowly deflated and removed over the wire.
COMPLETION ARTERIOGRAM: Outstanding technical result. Brisk flow through a widely patent superficial femoral artery and popliteal artery segment with no residual stenosis identified. No filling defects or dissection was identified. Brisk outflow
through the tibioperoneal trunk and peroneal artery with flow into the foot identified.
The sheath tip was pulled back into the left external iliac artery. A runoff arteriogram of the left lower extremity was performed which demonstrated the following:
LEFT LOWER EXTREMITY:
Common femoral artery: Patent with no significant stenosis identified
Profunda femoral artery: Patent with no significant stenosis identified
Superficial femoral artery: Patent proximal stump followed by scattered areas of high-grade stenosis and segmental occlusion throughout
Popliteal artery: Patent with areas of mild to moderate stenosis throughout
Anterior tibial artery: Patent
Tibioperoneal trunk: Patent
Peroneal artery: Patent
Posterior tibial artery: Occluded
Satisfied with this result we concluded the procedure. Protamine was administered. The sheath was secured in place with the plan to pull it in the recovery area. The patient tolerated the procedure well and was taken to the recovery area in
stable condition.
Attestation: I was present and responsible for the entire procedure.
Signed:
Hayden Tanner III, MD
Vascular Surgery
[facility]
== END 2024-06-29 16:20 | disposition home or self-care (01) ==
LOC: CATH 06:04
PROVIDERS: ATTENDING PHYSICIAN Surgery Vascular Surgery
DX: I70.232 Atherosclerosis of native arteries of right leg with ulceration of calf (principal); L97.219 Non-pressure chronic ulcer of right calf with unspecified severity; Z87.442 Personal history of urinary calculi; Z85.828 Personal history of other malignant neoplasm of skin; Z86.711 Personal history of pulmonary embolism; M81.0 Age-related osteoporosis without current pathological fracture; I73.9 Peripheral vascular disease, unspecified; Z87.891 Personal history of nicotine dependence; Z79.899 Other long term (current) drug therapy; Z79.82 Long term (current) use of aspirin; Z79.02 Long term (current) use of antithrombotics/antiplatelets
CPT/HCPCS: 37224; 37252; 75625; 75716; 80048; 85027; 85610; 85730; 93005; C1725; C1753; C1769; C1894; C2623; Q9967

== ENCOUNTER → 2024-07-17 08:48 | Outpatient (REF) | payer MEDICARE, OTHER, SELFPAY | LOC: WOUND 08:48 | PROVIDERS: ATTENDING PHYSICIAN Surgery; FAMILY PHYSICIAN Nurse Practitioner Family | DX: I70.232 Atherosclerosis of native arteries of right leg with ulceration of calf (principal); L97.212 Non-pressure chronic ulcer of right calf with fat layer exposed; I73.9 Peripheral vascular disease, unspecified; I87.2 Venous insufficiency (chronic) (peripheral) | CPT/HCPCS: 11042 ==

== ENCOUNTER → 2024-07-20 07:47 | Outpatient (REF) | payer MEDICARE, OTHER, SELFPAY | LOC: RAD 07:47 | PROVIDERS: ATTENDING PHYSICIAN Surgery Vascular Surgery; FAMILY PHYSICIAN Nurse Practitioner Family | DX: I73.9 Peripheral vascular disease, unspecified (principal) | CPT/HCPCS: 93922; 93925 ==

== ENCOUNTER → 2024-08-03 08:45 | Outpatient (REF) | payer MEDICARE, OTHER, SELFPAY | LOC: WOUND 08:45 | PROVIDERS: ATTENDING PHYSICIAN Surgery; FAMILY PHYSICIAN Nurse Practitioner Family | DX: I70.232 Atherosclerosis of native arteries of right leg with ulceration of calf (principal); L97.212 Non-pressure chronic ulcer of right calf with fat layer exposed; I87.2 Venous insufficiency (chronic) (peripheral) | CPT/HCPCS: 11042 ==

== ENCOUNTER → 2024-08-10 11:49 | Outpatient (REF) | payer MEDICARE, OTHER, SELFPAY | LOC: WDC 11:49 | PROVIDERS: ATTENDING PHYSICIAN Nurse Practitioner Family | DX: Z12.31 Encounter for screening mammogram for malignant neoplasm of breast (principal) | CPT/HCPCS: 77063; 77067 ==

== ENCOUNTER → 2024-08-14 08:50 | Outpatient (REF) | payer MEDICARE, OTHER, SELFPAY | LOC: WOUND 08:50 | PROVIDERS: ATTENDING PHYSICIAN Surgery | DX: I70.232 Atherosclerosis of native arteries of right leg with ulceration of calf (principal); L97.212 Non-pressure chronic ulcer of right calf with fat layer exposed; I87.2 Venous insufficiency (chronic) (peripheral) | CPT/HCPCS: 11042 ==

== ENCOUNTER → 2024-08-23 06:50 | Outpatient (REF) | payer MEDICARE, OTHER, SELFPAY | LOC: RAD 06:50 | PROVIDERS: ATTENDING PHYSICIAN Registered Nurse; FAMILY PHYSICIAN Nurse Practitioner Family | DX: I71.43 Infrarenal abdominal aortic aneurysm, without rupture (principal) | CPT/HCPCS: 76770 ==

== ENCOUNTER → 2024-09-04 08:44 | Outpatient (REF) | payer MEDICARE, OTHER, SELFPAY | LOC: WOUND 08:44 | PROVIDERS: ATTENDING PHYSICIAN Surgery; FAMILY PHYSICIAN Nurse Practitioner Family | DX: I70.232 Atherosclerosis of native arteries of right leg with ulceration of calf (principal); L97.212 Non-pressure chronic ulcer of right calf with fat layer exposed; I87.2 Venous insufficiency (chronic) (peripheral) | CPT/HCPCS: 99212 ==

== ENCOUNTER 2024-09-28 06:08 | Day surgery (SDC) | payer MEDICARE, OTHER, SELFPAY ==
[2024-09-25 09:18] VITALS: BMI 21.7
[2024-09-28] VITALS (40 sets, daily range): BP systolic 83–137; BP diastolic 30–59
--- NOTE | 2024-09-28 09:32 | W.SUR.POST ---
Surgical Immediate Post Op
Note
Pre Op Diagnosis: Peripheral arterial disease
Post Op Diagnosis: Peripheral arterial disease
Procedure Performed: LLE angiogram. Intravascular lithotripsy (Shockwave E8), balloon angioplasty of SFA/Pop with DCB Lutonix (5mm x 150mm, 5mm x 220mm).
Primary Surgeon: Hayden Tanner III, MD
Secondary Surgeons: Fabian An MD
Anesthesia: see anesthesia report
Estimated Blood Loss: 2 cc
Fluids: see anesthesia report
Drains/Shunts: none
Specimens/Cultures: none
Doppler/Duplex/Angio (Y/N): y
Complications: none
Operative Findings: occulsion/stenosis at SFA origin. Multiple stenotic segments along the L SFA/Pop. Two vessel runoff (AT/Peroneal).
--- NOTE | 2024-09-28 12:18 | W.PN.UPDATE ---
Update Note
Progress Note Update
Patient with a known right inguinal hernia, however following hold for right groin puncture site nursing staff was unsure if hematoma developed or if was a pre-existing hernia. Patient with stable vital signs, awake alert and oriented x 3, patient
offers no complaints and denies right groin pain or right lower back pain. No evidence of any active bleeding. Additional pressure was held to right groin prior to my and Dr. Tanner's arrival at bedside. No indication to believe there is a
hematoma or any bleeding, suspect nursing was feeling her existing inguinal hernia. For completeness we will obtain right groin ultrasound to rule out any active bleeding or development of pseudoaneurysm. If no evidence of pseudoaneurysm, active
bleeding, or hematoma patient can be discharged. Plan reviewed with on-call attending Dr. Hayden Tanner III, who agreed with plan. Dr. Tanner was also at bedside with me to assess right groin inguinal hernia, he agreed that he does not suspect any
active bleeding or hematoma and that this is likely patient's hernia.
--- NOTE | 2024-09-28 13:47 | OR.RPT ---
Operative Report
Operative Report
Date of Operation: 09/28/2024
Pre Op Diagnosis: Debilitating claudication, left lower extremity
Post Op Diagnosis: Debilitating claudication, left lower extremity
Procedure:
1. Intravascular lithotripsy to left superficial femoral artery and popliteal artery (5 mm x 80 mm E8 Shockwave)
2. Drug-coated balloon angioplasty of left superficial femoral artery and popliteal artery (5 mm x 200 mm Lutonix; 5 mm x 150 mm Lutonix)
3. Diagnostic aortobiiliac arteriogram
4. Diagnostic left lower extremity arteriogram
5. Ultrasound-guided percutaneous access of the right common femoral artery
Surgeon: Hayden Tanner III, MD
Correctional Supply Supervisor: Fabian An MD PGY-6
Anesthesia: Sedation with local
Fluoroscopy:
36.4 min
216 mGy
49.75 gy.cm2
Complications: None
Estimated Blood Loss: Less than 10 cc
History and Indications for Procedure: 83-year-old female with debilitating left calf claudication
Procedure in Detail: Laura Chambers was correctly identified and placed supine on the operating table. After adequate induction of anesthesia the bilateral groins were prepped and draped in the usual sterile fashion. A timeout was performed with the
nursing and anesthesia staff confirming the patient's identity as well as the nature and laterality of the procedure.
The right common femoral artery was identified under ultrasound guidance. The artery was patent. The superior and inferior aspects of the femoral head were identified with radiographic guidance and marked at the skin level. The proposed puncture
site was infiltrated with local anesthesia. Under ultrasound guidance we accessed the right common femoral artery with a micropuncture needle and upsized to a 5 Fr sheath over a Bentson wire. The wire and a [employer] Beyond hook flush catheter were
advanced into the distal abdominal aorta and a diagnostic aorto-biiliac arteriogram was performed:
AORTO-ILIAC ARTERIOGRAM:
Aorta: Heavily calcified. Abdominal aortic aneurysm identified. Patent.
Right common iliac artery: Calcified. Patent with no significant stenosis identified
Right external iliac artery: Patent with no significant stenosis identified
Left common iliac artery: Calcified. Patent with no significant stenosis identified
Left external iliac artery: Patent with no significant stenosis identified
Under roadmap guidance using a Glidewire and the [employer] Beyond hook catheter we selected the left common iliac artery and then the external iliac artery. A catheter was tracked up and over the aortic bifurcation and placed in the distal external iliac
artery. A diagnostic left lower extremity arteriogram was then performed which demonstrated the following:
LEFT LOWER EXTREMITY:
Common femoral artery: Patent with no significant stenosis identified
Profunda femoral artery: Patent with no significant stenosis identified
Superficial femoral artery: Patent stump. Segmental occlusion. Reconstituted above-knee popliteal artery
Popliteal artery: Reconstitutes above the knee. Moderate to high-grade stenosis. Patent behind the knee and below the knee
Tibial artery runoff via the peroneal and anterior tibial arteries both patent. Peroneal artery patent to the ankle. Anterior tibial artery continues across the ankle to form the dorsalis pedis artery.
ENDOVASCULAR INTERVENTION: Systemic heparin was administered. Exchanged out for a 6 Fr 45 cm sheath over a Storq wire. Selected the superficial femoral artery stump under roadmap guidance. The superficial femoral artery occlusion was crossed with a
Quickcross and Glidewire. The wire and catheter were advanced into the popliteal artery and subtraction angio confirmed proper position in the true lumen. Exchanged out for a 0.014 wire.
Due to the heavily calcified nature of the superficial femoral artery disease and in an effort to modify the calcium to achieve maximum luminal gain with endovascular intervention I elected to proceed with intravascular lithotripsy. A 5 mm x 80 mm
Shockwave balloon was positioned in the popliteal artery under roadmap guidance. Alternating rounds of lithotripsy pulse delivery at sub-nominal pressure and angioplasty at nominal pressure was performed across the stenosis. In between rounds of
pulse delivery and angioplasty the balloon was deflated and repositioned under roadmap guidance. The popliteal artery behind and above the knee as well as the entire superficial femoral artery length was treated with this approach. All 400 pulses
were delivered.
Subsequent arteriogram demonstrated an excellent result with significant improvement and now patent superficial femoral artery. A focal area of residual stenosis as well as a dissection flap was identified. The entire lithotripsy treated segment
of popliteal artery and superficial femoral artery was then treated with overlapping drug-coated balloon angioplasty. A 5 mm x 200 mm Lutonix was used to treat the popliteal artery and mid/distal superficial femoral artery. The balloon was
positioned in the desired location and held in place for 3-minute inflation at nominal pressure. The proximal superficial femoral artery was treated with a 5 mm x 150 mm Lutonix for 3 minutes at nominal pressure.
COMPLETION ARTERIOGRAM: Excellent technical result. Brisk flow through a widely patent superficial femoral artery and popliteal artery with no significant residual stenosis or flow-limiting dissection.
Satisfied with this result we concluded the procedure. The sheath tip was pulled back into the right external iliac artery. Protamine was administered. The sheath was secured in place with the plan to pull it in the recovery room..
The patient tolerated the procedure well and was taken to the recovery area in stable condition.
Attestation: I was present and responsible for the entire procedure.
Signed:
Hayden Tanner III, MD
Vascular Surgery
[facility]
== END 2024-09-28 15:00 | disposition home or self-care (01) ==
LOC: CATH 06:08
PROVIDERS: ATTENDING PHYSICIAN Surgery Vascular Surgery; OTHER PHYSICIAN Student in an Organized Health Care Education/Training Program; PRIMARYCARE PHYSICIAN Nurse Practitioner Family
DX: I70.212 Atherosclerosis of native arteries of extremities with intermittent claudication, left leg (principal)
CPT/HCPCS: C9764; 75625; 75710; 93926; C1769; C1894; C2623; Q9967

== ENCOUNTER → 2024-10-12 13:06 | Outpatient (REF) | payer MEDICARE, OTHER, SELFPAY | LOC: RAD 13:06 | PROVIDERS: ATTENDING PHYSICIAN Nurse Practitioner Family | DX: M41.9 Scoliosis, unspecified (principal); M54.50 Low back pain, unspecified | CPT/HCPCS: 72110 ==

== ENCOUNTER → 2024-10-26 12:54 | Outpatient (REF) | payer MEDICARE, OTHER, SELFPAY | LOC: RCS 12:54 | PROVIDERS: ATTENDING PHYSICIAN Student in an Organized Health Care Education/Training Program; FAMILY PHYSICIAN Nurse Practitioner Family | DX: I50.20 Unspecified systolic (congestive) heart failure (principal) | CPT/HCPCS: 93306 ==

== ENCOUNTER → 2024-10-29 13:12 | Outpatient (REF) | payer MEDICARE, OTHER, SELFPAY | LOC: RAD 13:12 | PROVIDERS: ATTENDING PHYSICIAN Surgery Vascular Surgery; FAMILY PHYSICIAN Nurse Practitioner Family | DX: I73.9 Peripheral vascular disease, unspecified (principal) | CPT/HCPCS: 93922; 93925 ==

== ENCOUNTER 2024-12-14 09:44 | Outpatient (RCR) | payer MEDICARE, OTHER, SELFPAY ==
[2024-12-07] MEDS: INJECTAFER 265 MG IV (09:56)
[2024-12-07 10:04] VITALS: BP 151/86
[2024-12-07 11:30] VITALS: BP 109/49
[2024-12-14] MEDS: INJECTAFER 265 MG IV (10:27)
[2024-12-14 10:44] VITALS: BP 128/57
[2024-12-14 11:30] VITALS: BP 116/52
== END 2024-12-17 08:46 | disposition home or self-care (01) ==
LOC: OID 09:44
PROVIDERS: ATTENDING PHYSICIAN Nurse Practitioner Family
DX: D50.9 Iron deficiency anemia, unspecified (principal); I73.9 Peripheral vascular disease, unspecified; I25.10 Atherosclerotic heart disease of native coronary artery without angina pectoris; I50.20 Unspecified systolic (congestive) heart failure; R74.8 Abnormal levels of other serum enzymes; Z86.711 Personal history of pulmonary embolism
CPT/HCPCS: 96365; J1439

== ENCOUNTER 2024-12-24 06:21 | Day surgery (SDC) | payer MEDICARE, OTHER, SELFPAY | END 2024-12-24 10:12 | disposition home or self-care (01) | LOC: GI 06:21 | PROVIDERS: ATTENDING PHYSICIAN Internal Medicine Gastroenterology | DX: D50.9 Iron deficiency anemia, unspecified (principal); K29.70 Gastritis, unspecified, without bleeding; K29.80 Duodenitis without bleeding; K44.9 Diaphragmatic hernia without obstruction or gangrene | CPT/HCPCS: 43235 ==

== ENCOUNTER 2025-02-08 06:32 | Day surgery (SDC) | payer MEDICARE, OTHER, SELFPAY | END 2025-02-08 13:13 | disposition home or self-care (01) | LOC: GI 06:32 | PROVIDERS: ATTENDING PHYSICIAN Internal Medicine Gastroenterology | DX: D50.9 Iron deficiency anemia, unspecified (principal); K44.9 Diaphragmatic hernia without obstruction or gangrene; K29.70 Gastritis, unspecified, without bleeding; R93.3 Abnormal findings on diagnostic imaging of other parts of digestive tract; K31.89 Other diseases of stomach and duodenum; K52.9 Noninfective gastroenteritis and colitis, unspecified | CPT/HCPCS: 44361; 43236; 88305 ==

== ENCOUNTER → 2025-02-20 11:09 | Outpatient (REF) | payer MEDICARE, OTHER, SELFPAY | LOC: MRI 3T 11:09 | PROVIDERS: ATTENDING PHYSICIAN Internal Medicine Gastroenterology | DX: K63.89 Other specified diseases of intestine (principal) | CPT/HCPCS: 72197; 74183; A9585 ==